=== PATIENT | male | born 1945 | race Caucasian/White ===

== ENCOUNTER 2018-02-21 12:53 | Observation (INO) ==
[2018-02-21] MEDS ORDERED: ASPIRIN PO ONE (14:19)
--- NOTE | 2018-02-21 14:30 | EKG Report ---
Test Performed on : 02/21/2018 1:41:56 PM Test Reason : CP/SOB Blood Pressure : / mmHG Vent. Rate : 092 BPM Atrial Rate : 277 BPM P-R Int : 000 ms QRS Dur : 142 ms QT Int : 388 ms P-R-T Axes : 266 099 032 degrees QTc Int : 479 ms Atrial flutter. with variable AV block. with premature ventricular or aberrantly conducted complexes. Right bundle branch block Abnormal ECG When compared with ECG of 28-NOV-2017 14:02, Atrial flutter. has replaced Atrial fibrillation. Unconfirmed Result
--- NOTE | 2018-02-21 14:39 | Diag Imaging Result Doc PS360 ---
CHEST-2 VIEWS - 02/21/2018 INDICATION: CP/SOB COMPARISON: 11/28/2017 FINDINGS: There are similar-appearing diffuse bilateral coarse interstitial infiltrates. These have a somewhat peripheral distribution. No pneumothorax or pleural effusion. Heart size is top normal. IMPRESSION: There is probably pulmonary fibrosis. Pulmonary edema may also be present. Correlate clinically. Electronically signed by Dusty Pedraza 02/21/2018 2:37 PM
--- NOTE | 2018-02-21 14:41 | ED EKG INTERP ---
This chart was entered by Ivana Pacheco Scribe, acting as scribe for Adelaida Brower MD. EKG Interpretation - EKG Time of EKG reading by physician:: 13:41 EKG Read and Signed by:: Adelaida Brower EKG Interpretation (*Must complete 3 of following elements*): Abnormal (rhythm - atrial fibrillation with variable AV block with premature ventricular or aberrantly conducted complexes) Rate: 92 Comments: RBBB Attestation - Physician/ PEREZ Attestation The physician spent face to face time with patient:: No Advanced Practice Provider documentation review:: Supervising physician onsite and consulted in the evaluation and care of this patient. The physician did not have a face to face encounter with the patient. This chart was documented by the indicated scribe, (Ivana Pacheco Scribe) and accurately reflects the services I performed and decisions made by me, Adelaida Brower MD, as attested by the provider's signature.
[2018-02-21 14:49] LABS: BASO# 0.04 X1000 (0.0-0.2); BASO% 0.4 % (0.0-0.8); EOS# 0.26 X1000 (0.0-0.7); EOS% 2.6 % (0.0-10.0); HEMATOCRIT 43.1 % (42.0-52.0); HEMOGLOBIN 13.7 g/dL (14.0-18.0); IMM GRAN# 0.04 X1000 (0.0-0.04); IMM GRAN% 0.4 % (0.0-0.5); LYMPH# 1.69 X1000 (1.2-3.4); LYMPH% 17.1 % (20.5-51.1); MCH 28.1 PG (27-31); MCHC 31.8 g/dL (33-37); MCV 88.3 FL (81-99); MONO# 0.89 X1000 (0.11-0.59); NEUT# 6.99 X1000 (1.4-6.5); NEUT% 70.5 % (42.2-75.2); PLT 305 X1000 (130-400); RBC 4.88 XMIL (4.7-6.1); RDW 17.2 % (11.5-14.5); WBC 9.91 X1000 (4.8-10.8)
[2018-02-21 15:01] LABS: INR 1.19
[2018-02-21 15:02] LABS: PTT 37.9 Seconds (22.3-41.8)
[2018-02-21 15:11] LABS: ALB/GLOB RATIO 1.8; ALBUMIN 4.1 g/dL (3.5-5.0); CALCIUM 9.9 mg/dL (8.8-10.2); CREATININE 1.4 mg/dL (0.7-1.2); POTASSIUM 5.3 mmol/L (3.5-5.1); TOTAL BILIRUBIN 0.61 mg/dL (0.20-1.00); TOTAL PROTEIN 6.4 g/dL (6.3-8.3)
--- NOTE | 2018-02-21 16:37 | PROVIDER DOCUMENTATION ---
HPI-Respiratory General - General Chief Complaint: Shortness of Breath Stated Complaint: SOB Time Seen by Provider: 02/21/18 15:50 Source: patient, family Allergies/Adverse Reactions: Patient Allergies Allergy/AdvReac Type Severity Reaction Status Date / Time No Known Allergies Allergy Verified 11/28/17 16:53 Home Medications: Home Medication List Medication Instructions Recorded Confirmed Last Taken Type Amlodipine Besylate 10 mg PO DAILY 11/28/17 11/28/17 1 Day Ago History ~11/27/17 10mg Atorvastatin Calcium 80 mg PO DAILY 11/28/17 11/28/17 1 Day Ago History ~11/27/17 80mg Clopidogrel Bisulfate [Clopidogrel] 75 mg PO DAILY 11/28/17 11/28/17 1 Day Ago History ~11/27/17 75mg Furosemide [Lasix] 40 mg PO DIRECTED 30 Days tab 11/28/17 Unknown Rx Gabapentin 300 mg PO DAILY 11/28/17 11/28/17 1 Day Ago History ~11/27/17 300mg Lisinopril 20 mg PO DAILY 11/28/17 11/28/17 1 Day Ago History ~11/27/17 20mg Metformin HCl 1,000 mg DAILY 11/28/17 11/28/17 1 Day Ago History ~11/27/17 1000mg Multivit with Iron,Minerals 1 tab PO DAILY 11/28/17 11/28/17 1 Day Ago History [Spectravite Senior] ~11/27/17 Venlafaxine HCl [Venlafaxine HCl 150 mg PO DAILY 11/28/17 11/28/17 1 Day Ago History ER] ~11/27/17 150mg - History of Present Illness-Resp Nature of Presenting Problem: HPI: Pt reprost to ER with 10 days of SOB, productive cough and weakness. He has a PMH of COPD, CHF, HTN, DM2, Hyperlipidemia, Stints x 1, but no SD. He states thta he been having progressively worse SOB over the past 10 days. He was admitted here in Nov 2017 for SOb and pulmonary Edema. They started Lasix at that time. He does not use oxygen at home, but upon arrival he was st at Review of Systems - Adult - REVIEW OF SYSTEMS - ADULT Constitutional: reports: no symptoms reported Eyes: reports: no symptoms reported Ears, Nose, Mouth & Throat: reports: no symptoms reported Cardiovascular: reports: no symptoms reported. denies: chest pain, edema Respiratory: reports: cough, dyspnea on exertion, excessive sputum production, shortness of breath Gastrointestinal: reports: no symptoms reported Genitourinary: reports: no symptoms reported Musculoskeletal: reports: no symptoms reported Integumentary: reports: no symptoms reported Neurological: reports: no symptoms reported Psychiatric: reports: no symptoms reported Endocrine: reports: no symptoms reported Hematologic/Lymphatic: reports: no symptoms reported Allergic/Immunologic: reports: no symptoms reported All Other Systems: Reviewed and Negative Past History - Adult - PAST MEDICAL HISTORY-ADULT Review of Records: reports: Old Records Reviewed, Nursing Assessment Review, Medications Reviewed, Social history reviewed & non-contributory. Major Childhood Illnesses: reports: denies history Cardiovascular: reports: A-Fib, CAD, CHF, HTN, hyperlipidemia Respiratory: reports: COPD Gastrointestinal: reports: denies history Obstetrical/Gynecological: reports: denies history Genitourinary: reports: denies history Musculoskeletal: reports: denies history Neurological: reports: denies history Psychiatric: reports: denies history Endocrine/Immune: reports: denies history Other Conditions: reports: denies history - PRIOR SURGERIES/PROCEDURES Surgical/Procedure History: reports: reviewed, not pertinent - IMMUNIZATION STATUS Childhood Immunizations: See Nurse Assessment Flu Vaccine: See Nurse Assessment - FAMILY HISTORY Family History: reviewed, not pertinent - SOCIAL HISTORY Smoking: denies Substance Use: none/never Alcohol Use Frequency: never Living Situation: family Physical Exam-General - PHYSICAL EXAM-ADULT Initial Vital Signs Reviewed: Yes - CONSTITUTIONAL General Appearance: appears well, alert, no apparent distress - EYES Eyes: pink conjunctivae - NECK Neck: full range of motion - RESPIRATORY Respiratory: chest non-tender, other (diffuse bilaterallly). negative: lungs clear, normal breath sounds, rhonchi - CARDIOVASCULAR Cardiovascular: normal peripheral pulses, no edema - GASTROINTESTINAL (ABDOMEN) Abdominal Exam: normal bowel sounds, non tender, soft. negative: distended, guarding, rigid, rebound, tenderness - LYMPHATIC Lymphatic: no adenopathy - MUSCULOSKELETAL Back Exam: normal inspection Extremity: normal range of motion, non-tender, normal gait Peripheral Pulses: radial (R): 2+, radial (L): 2+, dorsalis-pedis (R): 2+, dorsalis-pedis (L): 2+ - SKIN Integumentary: normal color, normal turgor, warm/dry - NEUROLOGIC Neurologic: grossly normal - PSYCHIATRIC Psych/Mental Status: normal mood/affect, normal thought content, normal thought process, oriented x 3 Progress - PLAN OF CARE/RESULTS Progress/Plan/Lab Results: Vital Signs - 8 hr 02/21/18 13:29 02/21/18 15:42 02/21/18 15:44 Pulse Rate 108 H 90 90 Respiratory Rate 18 20 12 Blood Pressure 130/91 121/76 O2 Sat by Pulse Oximetry 84 L 94 L 92 L 02/21/18 15:50 02/21/18 16:00 02/21/18 16:10 Pulse Rate 90 90 88 Respiratory Rate 21 16 23 Blood Pressure O2 Sat by Pulse Oximetry 89 L 93 L 93 L Laboratory Results - last 24 hr 02/21/18 02/21/18 02/21/18 13:43 13:43 13:43 WBC 9.91 RBC 4.88 Hgb 13.7 L Hct 43.1 MCV 88.3 MCH 28.1 MCHC 31.8 L RDW Std Deviation 17.2 H Plt Count 305 MPV 11.0 H Immature Gran % (Auto) 0.4 Neut % (Auto) 70.5 Lymph % (Auto) 17.1 L [place] % (Auto) 9.0 Eos % (Auto) 2.6 Baso % (Auto) 0.4 Immature Gran # (Auto) 0.04 Neut # (Auto) 6.99 H Lymph # (Auto) 1.69 [place] # (Auto) 0.89 H Eos # (Auto) 0.26 Baso # (Auto) 0.04 PT INR PTT (Actin FS) Sodium 139 Potassium 5.3 H Chloride 98 Carbon Dioxide 27 Anion Gap 14 BUN 23 H Creatinine 1.4 H Estimated GFR/1.73 m2 50 BUN/Creatinine Ratio 16 Glucose 185 H Calculated Osmolality 286 Calcium 9.9 Total Bilirubin 0.61 AST 15 ALT 19 Alkaline Phosphatase 115 Creatine Kinase 26 Troponin T Dal-N-Qmrqdanrcoi Pept 498 H Total Protein 6.4 Albumin 4.1 Globulin 2.3 Albumin/Globulin Ratio 1.8 02/21/18 02/21/18 13:43 13:43 WBC RBC Hgb Hct MCV MCH MCHC RDW Std Deviation Plt Count MPV Immature Gran % (Auto) Neut % (Auto) Lymph % (Auto) [place] % (Auto) Eos % (Auto) Baso % (Auto) Immature Gran # (Auto) Neut # (Auto) Lymph # (Auto) [place] # (Auto) Eos # (Auto) Baso # (Auto) PT 16.0 INR 1.19 PTT (Actin FS) 37.9 Sodium Potassium Chloride Carbon Dioxide Anion Gap BUN Creatinine Estimated GFR/1.73 m2 BUN/Creatinine Ratio Glucose Calculated Osmolality Calcium Total Bilirubin AST ALT Alkaline Phosphatase Creatine Kinase Troponin T < 0.010 Utp-C-Fmcaptychci Pept Total Protein Albumin Globulin Albumin/Globulin Ratio Orders Category Date Time Status Cardiac Monitoring DIRECTED Care 02/21/18 14:19 Active Oxygen Therapy- ED Nursing DIRECTED Care 02/21/18 14:19 Active Saline Loc NOW Care 02/21/18 14:19 Active CHEST-2 VIEWS [RAD] Stat Exams 02/21/18 14:19 Completed CBC WITH ELECTRONIC DIFF [HEME] Stat Lab 02/21/18 13:43 Completed CK PROFILE [SP CHEM] Stat Lab 02/21/18 13:43 Completed COMPREHENSIVE METABOLIC PANEL [CHEM] Stat Lab 02/21/18 13:43 Completed PRO B-NATRIURETIC PEPTIDE Stat Lab 02/21/18 13:43 Completed PROTIME WITH INR [COAG] Stat Lab 02/21/18 13:43 Completed PTT [COAG] Stat Lab 02/21/18 13:43 Completed TROPONIN T Stat Lab 02/21/18 13:43 Completed Aspirin Med 02/21/18 14:19 Discontinued 325 mg PO NOW ONE CefTRIAXONE [Rocephin] 1 gm Med 02/21/18 16:42 Active 0.9% Sodium Chloride Inj [Ns] 50 ml IV NOW Methylprednisolone Sod Succ [Solu-Medrol] Med 02/21/18 16:42 Discontinued 60 mg IV NOW ONE CP/SOB/Palp >45 yrs of Age Stat Oth 02/21/18 14:19 Ordered EKG [EKG] Stat Ther 02/21/18 14:19 Draft Result Diagrams: 02/21/18 13:43 02/21/18 13:43 - XRAY 1 XRAY Study: Chest Impression: Abnormal ([facility] [address], [address], [place] [id number] Department of Imaging Patient: WILDER LEYVA Date: 02/21/18MR#: [id number] : 1945DM Status: PRE ERAcct#: [id number] Age /Sex: 72/MRoom/Bed: Loc: ED Ordering Physician: Adelaida Brower MD Family Physician: None,PCP Reason for Procedure: CP/SOB Signed CHEST- 2 VIEWS - 02/21/2018 INDICATION: CP/SOB COMPARISON: 11/28/2017 FINDINGS: There are similar-appearing diffuse bilateral coarse interstitial infiltrates. These have a somewhat peripheral distribution. No pneumothorax or pleural effusion. Heart size is top normal. IMPRESSION: There is probably pulmonary fibrosis. Pulmonary edema may also be present. Correlate clinically. Electronically signed by Dusty Pedraza 02/21/2018 2:37 PM 02/21/18 1437 Interpreting Physician: Dusty Pedraza MD Dictated Date/Time: 02/21/18 1435 cc: Adelaida Brower MD; None,PCP) - CONSULTS/PCP/HOSPITALIST Notification #1 *Consult/PCP/Hospitalist*: Rajeev ga for Dr porter Time Discussed: 16:49 Consult Disposition: Admit Departure - Departure Date of Disposition Decision: 02/21/18 Time of Disposition Decision: 16:48 DIAGNOSIS: Acute respiratory failure, COPD exacerbation Disposition: ADMITTED INPATIENT 09 Certified Medical Emergency: Emergent Condition: Fair Referrals and Follow-Ups: Lucero Benito [Primary Care Provider] - - Critical Care Note This patient required my direct & personal management of CC.: No Attestation - Physician/ PEREZ Attestation Patient care was provided by Advanced Practice Provider:: No The physician spent face to face time with patient:: Yes Advanced Practice Provider documentation review:: Supervising physician onsite and consulted in the evaluation and care of this patient. The physician did have a face to face encounter with the patient.
[2018-02-21] MEDS ORDERED: ROCEPHIN 1 GM in NS 50 ML IV ONE (16:42)
[2018-02-21] MEDS ORDERED: SOLU-MEDROL IV ONE (16:42)
[2018-02-21] MEDS ORDERED: DUONEB (A & A) INH ONE (16:52)
[2018-02-21] MEDS ORDERED: LACTULOSE PO ONE (17:45)
[2018-02-21] MEDS ORDERED: LASIX IV ONE (17:47)
[2018-02-21 18:22] LABS: ALLEN TEST YES; BE 2.7 mmoll (-3.0-3.0); BLOOD TYPE ARTERIAL; HCO3-(ACT) 26.8 mmoll (20.0-26.0); O2(CT) 17.4 mL/dL (15.0-23.0); PCO2(98.6) 36 mmHg (35-45); PO2(98.6) 53 mmHg (60-100); SAMPLE BLOOD; SAO2 90.2 % (95.0-100.0); THB 14.1 g/dL (11.5-17.4); pH(98.6) 7.47 (7.35-7.45)
[2018-02-21 18:30] LABS: O2HB 87.8 % (95.0-99.0)
[2018-02-21 18:31] LABS: MODALITY CANNULA
[2018-02-21] MEDS ORDERED: ZOFRAN IV PRN (18:41)
[2018-02-21] MEDS ORDERED: DUONEB (A & A) INH PRN (18:41)
[2018-02-21] MEDS ORDERED: TYLENOL PO PRN (18:41)
--- NOTE | 2018-02-21 19:29 | HISTORY AND PHYSICAL ---
PRIMARY CARE PROVIDER: [facility] in [place]. GENERAL: Shortness of breath. HPI: Mr. Forde is a 72-year-old male who carries a past medical history of coronary artery disease status post a stent in the summer in [facility] by an unknown doctor, COPD. He is not on home O2 or any breathing treatments, hypertension, diabetes mellitus type 2, hyperlipidemia, irregular heart rate, recently diagnosed with congestive heart failure per patient's report at the [facility]. He was placed on a water pill. He reported to the ED about a week and a half history of shortness of breath with exertion and goes away with rest. He denied any wheezing, any chest pain, fever, chills, nausea, vomiting, diarrhea, heart palpitations, diaphoresis. He had a productive cough which he usually has a cough of brownish green sputum, in the ER he was given DuoNeb, IV steroids and placed on Rocephin and admitted for COPD exacerbation, acute respiratory failure. We will obtain blood cultures, ABG, place him on telemetry. He does not have a white count. Elevated BUN and creatinine at 23 and 1.4, blood glucose of 185, troponin less than 0.010 and a proBNP of 498 and potassium of 5.3 so we will give a small dose of Lasix and lactulose for chest x-ray revealed probable pulmonary fibrosis, pulmonary edema, EKG showed atrial flutter with an AV block with premature ventricular complexes read by Dr. Brower as a-fib. He is rate controlled in the 90s, again denies palpitations or chest pain. REVIEW OF SYSTEMS: 14 point review of systems completely negative except for those mentioned in HPI. PAST MEDICAL HISTORY: 1. Irregular heart rate probable atrial fibrillation patient was unsure. 2. Coronary artery disease patient denied MD but he is status post a stent back in the summer 2017 [facility]. 3. Congestive heart failure . 4. Hypertension. 5. Hyperlipidemia. 6. COPD. 7. Diabetes mellitus type 2 on oral metformin. PAST SURGICAL HISTORY: 1. Bilateral knee replacement . 2. Appendectomy. 3. Heart catheterization in 2018 at [facility]. SOCIAL HISTORY: The patient quit smoking 40 years ago, he was a 3 pack per day smoker for many years, negative alcohol. He lives in [place], he is , retired from [employer]. FAMILY HISTORY: Unsure of coronary artery disease. Father of some type of cancer unknown what type, patient states he was very young when his father . His father was born in 1897. He has a brother he believes is diabetic but still unsure, he is 92 years old. ALLERGIES: No known drug allergies. HOME MEDICATIONS: Have not been reconciled. The patient is not sure what medicines he takes for sure he states his just leaves them out for him and he takes them. PHYSICAL EXAM: VITAL SIGNS: No temperature taken, heart rate 88, respirations 23, most recent blood pressure was 121/76, oxygen was 93% on 2 L nasal cannula. GENERAL: Mr. Forde is a 72-year-old male who is sitting up on the edge of the stretcher in no acute distress uninterested in the interview process. HEENT: Atraumatic, normocephalic, [place]. NECK: Is supple, trachea midline. CV: Irregular rate and rhythm, no murmurs, gallops or rubs noted no JVD no LE edema B pedal pulses palpable. PULMONARY: Bilateral breath sounds clear to auscultation bilaterally, decreased in the bases. GI: Soft, nontender, nondistended, positive bowel sounds 4 quads. EXTREMITIES: no clubbing no cyanosis. NEURO: No focal deficits noted, patient is alert and oriented x4. DIAGNOSTIC DATA: Chest x-ray probable pulmonary fibrosis, pulmonary edema. EKG shows atrial flutter. LABORATORY DATA: White count 9, hemoglobin and hematocrit 13 and 43, platelet count is 305,000, sodium 139, potassium 5.3, BUN 23, creatinine 1.4, blood glucose is 185, troponin less than 0.010, ProBNP is 498. ASSESSMENT PLAN: 1. Probable Mild chronic obstructive pulmonary disease exacerbation. Will switch the patient over to Levaquin to help with inflammation in the lungs, continue bronchodilators scheduled and p.r.n. Continue with low-dose steroids, aggressive pulmonary toilet, recheck a chest x-ray in the a.m. 2.Probable Mild pulmonary edema with a mildly elevated proBNP, patient does state he has a history of congestive heart failure, this is diagnosed at the [facility]. We will give him a light dose of intravenous Lasix, recheck his proBNP and chest x-ray in the a.m., consult Cardiology, check an echocardiogram. 3. Hypoxemic respiratory failure upon arrival patient's O2 saturations were in the 80s, he is in the low 90s on supplemental O2. Will check an ABG, recheck an ABG in the a.m. 4. Mild hyperkalemia. Will give lactulose as well as give a light dose of Lasix. 5. Acute kidney injury on chronic kidney disease. Will recheck his BUN and creatinine in the a.m. We are going to give him light dose of Lasix very cautiously, hold any nephrotoxic drugs . 6. Hypertension, continue home medications when reconciled. 7. Hyperlipidemia, will check a lipid profile. 8. Diabetes mellitus type 2. Will continue on diabetic diet, check hemoglobin A1c, place him on pattern sugars with sliding scale. 9. Atrial fibrillation versus atrial flutter, patient currently rate controlled , will place him on medical tele, consult Cardiology. 10. Coronary artery disease status post stent in the summer of 2017 at [facility]. Will continue home medications when reconciled. 11. Further recommendations to follow laboratory data and physician evaluation. Dictated by DIVINA Vicente for Iain Andre MD cc: Iain Andre MD [facility]
[2018-02-21] MEDS: DUONEB (A & A) INH SCH ×2 (19:30→23:00)
[2018-02-21] MEDS: HEPARIN SUBQ SCH (20:37)
[2018-02-21] MEDS: LEVAQUIN 500 MG/D5W 500 MG/100 ML IVPB IV SCH (20:37)
[2018-02-21] MEDS: SOLU-MEDROL IV SCH (20:37)
[2018-02-22] MEDS: DUONEB (A & A) INH SCH ×6 (03:50→23:00)
[2018-02-22 05:31] LABS: ALLEN TEST YES; BE 0.3 mmoll (-3.0-3.0); BLOOD TYPE ARTERIAL; METHB 0.5 % (0.0-1.5); O2(CT) 17.2 mL/dL (15.0-23.0); O2HB 90.2 % (95.0-99.0); PCO2(98.6) 33 mmHg (35-45); PO2(98.6) 56 mmHg (60-100); SAMPLE BLOOD; SAO2 92.4 % (95.0-100.0); THB 13.6 g/dL (11.5-17.4); pH(98.6) 7.46 (7.35-7.45)
[2018-02-22 05:35] LABS: MODALITY CANNULA
[2018-02-22 06:22] LABS: BASO# 0.01 X1000 (0.0-0.2); BASO% 0.1 % (0.0-0.8); EOS# 0.01 X1000 (0.0-0.7); EOS% 0.1 % (0.0-10.0); HEMATOCRIT 40.3 % (42.0-52.0); HEMOGLOBIN 13.1 g/dL (14.0-18.0); IMM GRAN# 0.04 X1000 (0.0-0.04); IMM GRAN% 0.6 % (0.0-0.5); LYMPH# 0.74 X1000 (1.2-3.4); LYMPH% 10.7 % (20.5-51.1); MCH 28.3 PG (27-31); MCHC 32.5 g/dL (33-37); MONO# 0.25 X1000 (0.11-0.59); MONO% 3.6 % (1.7-9.3); NEUT# 5.88 X1000 (1.4-6.5); NEUT% 84.9 % (42.2-75.2); PLT 284 X1000 (130-400); RBC 4.63 XMIL (4.7-6.1); RDW 16.8 % (11.5-14.5); WBC 6.93 X1000 (4.8-10.8)
[2018-02-22 06:33] LABS: AGAP 14; ALB/GLOB RATIO 1.2; ALBUMIN 3.7 g/dL (3.5-5.0); ALKALINE PHOSPHATASE 98 U/L (32-122); BUN 24 mg/dL (8-22); CALCIUM 9.5 mg/dL (8.8-10.2); CHLORIDE 100 mmol/L (98-107); CHOLESTEROL 142 mg/dL (0-200); COSMO 287; CREATININE 1.2 mg/dL (0.7-1.2); ESTIMATED GFR 59; GLUCOSE 234 mg/dL (70-104); GOT 12 U/L (10-34); GPT 14 U/L (10-44); HDL 27 mg/dL (35-55); LDL 84 mg/dL; POTASSIUM 4.8 mmol/L (3.5-5.1); SODIUM 138 mmol/L (136-145); TCO2 24 mmol/L (25-35); TOTAL BILIRUBIN 0.52 mg/dL (0.20-1.00); TOTAL PROTEIN 6.7 g/dL (6.3-8.3); TRIGLYCERIDES 155 mg/dL (39-160); VLDL 31 mg/dL
[2018-02-22 06:40] LABS: HEMOGLOBIN A1C 6.3 % (4.8-6.0)
--- NOTE | 2018-02-22 07:16 | Diag Imaging Result Doc PS360 ---
EXAM: CHEST-PORTABLE 02/22/2018 HISTORY: short of breath TECHNIQUE: AP portable at 0605 COMMENT: There is increased interstitial markings generally particularly over the right lung. This may be slightly improved since the previous study of 02/21/2018. IMPRESSION: Slightly improved pulmonary edema. Electronically signed by Cezar Stanley 02/22/2018 7:14 AM
[2018-02-22] MEDS: HEPARIN SUBQ SCH (10:17)
[2018-02-22] MEDS: SOLU-MEDROL IV SCH ×2 (10:17→22:08)
[2018-02-22] MEDS ORDERED: PLAVIX PO SCH (11:56)
[2018-02-22] MEDS ORDERED: NORVASC PO SCH (11:56)
[2018-02-22] MEDS: PRINIVIL PO SCH (13:36)
[2018-02-22] MEDS: EFFEXOR XR PO SCH (13:36)
[2018-02-22] MEDS: LASIX IV SCH (13:37)
[2018-02-22] MEDS: NEURONTIN PO SCH (13:37)
[2018-02-22] MEDS: LEVAQUIN 500 MG/D5W 500 MG/100 ML IVPB IV SCH (18:12)
--- NOTE | 2018-02-22 19:27 | PROGRESS NOTE ---
DATE: 02/22/2018 SUBJECTIVE: The patient is resting comfortably in bed. He states that his shortness of breath has improved. No acute events noted overnight. OBJECTIVE: Vital Signs: Temperature 98.7 degrees, blood pressure 124/68, heart rate 95, respirations 20, oxygen saturation 99% on 2 L nasal cannula. General: This is a morbidly obese male, sitting up in bed, in no acute distress. Heart: S1, S2. Normal. Lungs : Clear to auscultation bilaterally. No wheezing. No rales. Abdomen: Positive bowel sounds. Soft, nontender, nondistended. Extremities: No edema. No cyanosis. Neurologic: The patient is alert and oriented x3. LABS: Reviewed. ASSESSMENT AND PLAN: 1. Acute pulmonary edema. Improved. Continue with diuretic therapy. Cardiology has been consulted. 2. Chronic obstructive pulmonary disease exacerbation. Continue with IV steroids, bronchodilator therapy, and Levaquin. The patient states that he is not on supplemental oxygen at home. 3. Tachyarrhythmia. Will await further recommendations from the quarter backer. 4. Hypertension. Continue on the current antihypertensive regimen. cc: Basia Fragoso MD MTDD
--- NOTE | 2018-02-22 19:37 | CARDIOLOGY CONSULTATION ---
DATE: 02/22/2018 INDICATION FOR ADMISSION: Shortness of breath. HISTORY OF PRESENT ILLNESS: Mr. Forde is a 72-year-old white male with a history of coronary artery disease with previous PCI in 2017 per review of records. He presented for evaluation of shortness of breath that has been ongoing for the last several weeks. He reports this can occur with exertion like walking across a room. He denies any orthopnea. He has not had any chest pain. It sounds like he has been diagnosed with atrial flutter possibly in the last couple of months or so and [facility] He has not had any palpitations. He has not had any other adjustments in his medications. PAST MEDICAL HISTORY: 1. Significant for CAD diagnosed in September 2016 at which time he had a normal left main, mild luminal irregularities in the LAD and circumflex. The RCA had a mid portion 80% stenosis that was treated with a 3.0 x 28 mm Xience drug-eluting stent. He has not followed back up with Cardiology. After this the LV function was 55% on that study. 2. Hypertension. 3. Hyperlipidemia. 4. COPD with a smoking history of 40 years. 5. Diabetes. 6. Possible atrial fibrillation, but the history of that is somewhat limited. SOCIAL HISTORY: He quit smoking 15 years ago after a 40 year smoking history. He lives in [place]. He is . He is retired from [employer]. FAMILY HISTORY: Significant for hypertension. REVIEW OF SYSTEMS: A 10-system review of systems is negative except for those as mentioned in HPI. PHYSICAL EXAMINATION: Vital Signs: He is afebrile. His heart rate most recently was 121, but previous to that seemed to be documented in the 80s to 90s predominantly. His blood pressure is 124/68. General: He is in no acute distress. HEENT: Oropharynx is moist. Poor dentition. Eye examination is pink conjunctivae. White sclerae. Neck: Examination shows no obvious thyromegaly or thyroid tenderness. Cardiovascular: He sounds to be in a regular rate and rhythm. He has no murmurs, no S3. His telemetry currently shows atrial flutter at a rate of 120. He has no lower extremity edema. Chest: Sounds clear bilaterally. He has no increased work of breathing. Abdomen: Soft, nontender, nondistended. He has no obvious organomegaly. Skin: Warm and dry throughout without any rashes. Neurologic: Moving all extremities well. He has no lateralizing deficits. Psychiatric: Alert and oriented, pleasant. Normal mood and affect. PERTINENT DATA: His EKG yesterday shows variable atrial flutter with a rate of 92 beats per minute. Right bundle branch block is present. His white count was 6.9, hematocrit 40. Platelet count is 284,000. His ABG was reviewed. His sodium is 138, potassium 4.8, BUN 24, creatinine is 1.2. Mag level was 1.8 yesterday. His cardiac enzymes have been negative. His ProBNP was 528 this morning. His LDL is 84. He had a chest x-ray demonstrating slight improvement in pulmonary edema. ASSESSMENT: Mr. Forde is a 72-year-old gentleman who presented with shortness of breath. PLAN: This is possibly due to his atrial flutter. Presently, we will try to perform a cardioversion in the morning. Transesophageal echo will be performed along with it. We will stop his Plavix, place him on aspirin and initiate Eliquis at a dose of 5 mg b.i.d. This stent was performed in September 2016, so we should be able to discontinue the Plavix. His TSH this morning was normal. cc: Paul Ferrara MD
[2018-02-22] MEDS: LOPRESSOR PO SCH (22:07)
[2018-02-22] MEDS: ELIQUIS PO SCH (22:07)
[2018-02-22] MEDS: LIPITOR PO SCH (22:07)
[2018-02-23] MEDS: LASIX IV SCH ×2 (01:00→11:57)
[2018-02-23] MEDS: DUONEB (A & A) INH SCH ×6 (02:35→23:05)
--- NOTE | 2018-02-23 04:16 | PULMONOLOGY CONSULTATION ---
DATE: 02/22/2018 REQUESTING PHYSICIAN: Dr. Fragoso. REASON FOR CONSULTATION: COPD, with shortness of breath and hypoxemia. HISTORY OF PRESENT ILLNESS: Mr. Forde is a 72-year-old white male with a greater than 60-pack- year history for tobacco (nonsmoker for 30 years), who presented to the hospital in November 2017 with fluid overload, pulmonary edema, and increased shortness of breath. He was initiated on a diuretic, and reports some improvement in his breathing at that time. The patient reports he has been diagnosed with COPD 6 to 7 months ago at the [place], although he does not recall a pulmonary function study by name or by description. He is not on home oxygen. The patient presented to the emergency room yesterday with increasing shortness of breath for approximately 1 week. He reports his oxygen saturation in the [facility] is routinely 90, and he was 84 on presentation. Chest x- ray revealed increased interstitial infiltrates, consistent with fibrosis or edema. Chest x-ray this morning revealed a slight decrease in markings, suggesting decreased edema. The patient has been evaluated by Cardiology. He is in atrial flutter, and it is a working diagnosis that this may be contributing to his shortness of breath. The patient denies fevers, chills, or significant sputum production. PAST MEDICAL HISTORY: 1. Coronary artery disease, status post stent placement in the RCA with a drug-eluting stent, 09/2016. He had excellent LV function. 2. Hypertension. 3. Intermittent atrial fibrillation. 4. Diabetes mellitus. 5. COPD. 6. Dyslipidemia. SOCIAL HISTORY: The patient is retired. Prior tobacco use. He denies significant alcohol use. FAMILY HISTORY: Possible for diabetes. The patient was young when his father . REVIEW OF SYSTEMS: As noted in the HPI. PHYSICAL EXAMINATION: General: Reveals an obese white male, in no distress. Vital Signs: BP 133/62, heart rate 124, respiratory rate 20, oxygen saturation 97% on 2 L per nasal cannula. HEENT: Pupils are equal and reactive. Oropharynx is clear. Neck: Supple. Chest: Reveals prolonged expiratory phase. Cardiac: S1-S2. Increased rate. Relatively regular rhythm. Abdomen: Obese and soft. Extremities: Without edema. LABORATORIES: Arterial blood gas this morning reveals a pH 7.46, pCO2 of 33, PO2 of 56 on 2 L per nasal cannula. IMPRESSION: A 72-year-old with chronic obstructive pulmonary disease, mild pulmonary edema, atrial flutter with a tachyarrhythmia, mild pulmonary edema, and acute hypoxemic respiratory failure. I agree with Cardiology's assessment that the atrial flutter may be contributing to mild pulmonary edema, which is pushing him from a marginal oxygenation status to acute hypoxemia. He currently has no significant wheezing on examination, and no significant evidence of an active chronic obstructive pulmonary disease exacerbation. RECOMMENDATIONS: 1. Agree with attempted cardioversion as planned. 2. Continue oxygen for hypoxemic respiratory failure. 3. Outpatient sleep study. [facility] 4. Recommend outpatient PFTs. [facility], and this will likely need to be done through a [place] facility. cc: Sumit An MD
[2018-02-23 06:41] LABS: BASO# 0.02 X1000 (0.0-0.2); BASO% 0.2 % (0.0-0.8); HEMATOCRIT 42.6 % (42.0-52.0); HEMOGLOBIN 13.7 g/dL (14.0-18.0); IMM GRAN# 0.05 X1000 (0.0-0.04); IMM GRAN% 0.4 % (0.0-0.5); LYMPH# 0.77 X1000 (1.2-3.4); LYMPH% 6.5 % (20.5-51.1); MCH 28.1 PG (27-31); MCHC 32.2 g/dL (33-37); MCV 87.5 FL (81-99); MONO# 0.56 X1000 (0.11-0.59); MONO% 4.7 % (1.7-9.3); NEUT# 10.52 X1000 (1.4-6.5); NEUT% 88.2 % (42.2-75.2); PLT 342 X1000 (130-400); RBC 4.87 XMIL (4.7-6.1); RDW 17.2 % (11.5-14.5); WBC 11.92 X1000 (4.8-10.8)
[2018-02-23 06:49] LABS: CALCIUM 9.8 mg/dL (8.8-10.2); CREATININE 1.4 mg/dL (0.7-1.2); POTASSIUM 4.8 mmol/L (3.5-5.1)
[2018-02-23 07:40] LABS: BANDS 2 % (0-1); LYMPHS 4 % (21-51); MONO 2 % (1-9); SEGS 92 % (42-75)
--- NOTE | 2018-02-23 08:46 | ECHO REPORT ---
ORDER DATE: 02/22/2018 MEASUREMENTS: Left ventricular end-diastolic diameter 4.7, end-systolic diameter 3.3, septal thickness 1.2, posterior wall thickness 0.8, aortic root 4.2, left atrium 3.9. SUMMARY: 1. Technically difficult study due to limited acoustic window quality. 2. Aortic valve is trileaflet and opens normally on 2-dimensional images. Peak gradient across the aortic valve is less than 10 mmHg. Mitral and tricuspid valves are without evidence of structural abnormality while the pulmonic valve was not well demonstrated. There is very mild mitral regurgitation and trace tricuspid regurgitation. The aortic root is mildly enlarged. 3. Normal left ventricular dimensions suggested on 2-D images. Estimated left ventricular ejection fraction appears to be at least 60%. No obvious regional wall motion abnormality can be appreciated. Left atrium is upper normal in size. Right atrium and right ventricle are grossly normal in size. 4. Tiny posterior pericardial effusion. 5. Appearance of inferior vena cava suggests some elevation of central venous pressure. cc: Geovani Hernandez MD
[2018-02-23] MEDS: SOLU-MEDROL IV SCH (09:18)
[2018-02-23] MEDS: PRINIVIL PO SCH (09:45)
[2018-02-23] MEDS: NORVASC PO SCH (09:45)
[2018-02-23] MEDS: LOPRESSOR PO SCH ×2 (09:45→21:20)
[2018-02-23] MEDS: NEURONTIN PO SCH (09:45)
[2018-02-23] MEDS: EFFEXOR XR PO SCH (09:45)
[2018-02-23] MEDS: ASPIRIN PO SCH (09:46)
[2018-02-23] MEDS: ELIQUIS PO SCH ×2 (09:46→21:20)
[2018-02-23] MEDS ORDERED: SODIUM CHLORIDE 0.9% 10 ML ONE (10:17)
[2018-02-23] MEDS ORDERED: XYLOCAINE 2% VISCOUS ONE (10:17)
[2018-02-23] MEDS ORDERED: NS 1,000 ML ONE (10:21)
[2018-02-23] MEDS ORDERED: CLAVE TWINSITE 32 IN 11959 ONE (10:21)
[2018-02-23] MEDS ORDERED: ANESTHESIA PB SET 88 IN 5742 ONE (10:21)
[2018-02-23] MEDS ORDERED: DIPRIVAN 1% ONE (10:27)
--- NOTE | 2018-02-23 11:04 | CARDIAC CATH REPORT ---
PROCEDURE NAME: - SUMMARY: After transesophageal echocardiography was performed, revealing no evidence of intracardiac thrombus, continued conscious sedation per Anesthesiology was maintained with propofol. The patient subsequently underwent synchronous direct-current cardioversion with 200 joules biphasic, converting atrial fibrillation to sinus rhythm. There were no apparent complications. CONCLUSION: Successful cardioversion of atrial fibrillation, restoring sinus rhythm. cc: Geovani Hernandez MD
--- NOTE | 2018-02-23 12:59 | EKG Report ---
Test Performed on : 02/23/2018 12:20:34 PM Test Reason : S/P cardioversion and silverio Blood Pressure : / mmHG Vent. Rate : 087 BPM Atrial Rate : 087 BPM P-R Int : 182 ms QRS Dur : 138 ms QT Int : 410 ms P-R-T Axes : 076 093 046 degrees QTc Int : 493 ms Sinus rhythm. with premature atrial complexes. Right bundle branch block Abnormal ECG When compared with ECG of 21-FEB-2018 13:41, (Unconfirmed) Sinus rhythm. has replaced Atrial fibrillation. Confirmed by Marleny GONZALES, Darrius Giraldo ([id number]) on 02/24/2018 7:18:26 PM
--- NOTE | 2018-02-23 13:45 | CARDIOLOGY PROGRESS NOTE ---
DATE: 02/23/2018 SUBJECTIVE: In the interim Mr. Forde has had his DK, followed by his cardioversion. He successfully has been converted to sinus. OBJECTIVE: Vital signs: The patient is afebrile. Heart rate 85, blood pressure 104/53. Telemetry currently shows sinus rhythm. Cardiovascular: He is in a regular rate and rhythm. He has no murmurs. He has no S3. No lower extremity edema. Chest: Clear bilaterally. No increased work of breathing. Abdomen: Soft, nontender. PERTINENT DATA: White count 11.9, hematocrit 42, platelet count 342,000. Sodium 138, potassium 4.8, BUN 30, creatinine is 1.4. ASSESSMENT: Mr. Forde is a 72-year-old gentleman with chronic obstructive pulmonary disease, who presented short of breath and in atrial fibrillation/flutter. PLAN: He cardioverted relatively easily. We will continue him on the Apixaban, as well as metoprolol and amlodipine. He was re-initiated on low-dose aspirin given his history of PCI. I will have him follow up with me in the clinic as an outpatient. From my standpoint, he can be discharged once safe from a primary care standpoint. cc: Paul Ferrara MD
[2018-02-23] MEDS: LEVAQUIN 500 MG/D5W 500 MG/100 ML IVPB IV SCH (16:40)
[2018-02-23] MEDS: HUMULIN R SUBQ SCH ×2 (16:40→21:21)
--- NOTE | 2018-02-23 20:29 | PROGRESS NOTE ---
DATE: 02/23/2018 SUBJECTIVE: The patient underwent a DK with cardioversion this morning. He is now in normal sinus rhythm. He has no complaints. OBJECTIVE: Vital Signs: Temperature 97 degrees, blood pressure 124/59, heart rate 102, respirations 20, O2 saturation 96% on 3 L nasal cannula. General: This is a chronically ill- appearing male, sitting up in bed, in no acute distress. Heart: S1, S2 normal. Regular rate and rhythm. Lungs: Equal air entry bilaterally. No wheezing. No rales. Abdomen: Positive bowel sounds. Soft, nontender, nondistended. Extremities: No edema. No cyanosis. Neurologic: The patient is alert and oriented x3. LABS: White blood cell count 11, hemoglobin 13, hematocrit 42, platelets 342,000. Sodium 138, potassium 4.8, chloride 100, CO2 23, BUN 30, creatinine 1.4, glucose 291. ASSESSMENT AND PLAN: 1. Atrial flutter, status post transesophageal echocardiogram with cardioversion. The patient is now in normal sinus rhythm. The patient has been started on Eliquis and Lopressor. 2. Acute pulmonary edema. Improved. The patient is on diuretic therapy. He does qualify for home oxygen. [employer] is working on arranging this. 3. Diabetes mellitus type 2. The patient's blood sugars have been running high, but that is likely secondary to steroid therapy. We will discontinue the steroids. We will cover the patient with sliding scale insulin at this time. 4. Hypertension. Controlled. 5. Diabetic neuropathy. Continue on gabapentin. 6. Disposition. Will plan to discharge the patient home tomorrow once the home oxygen has been arranged by [employer]. cc: Basia Fragoso MD
[2018-02-23] MEDS: LIPITOR PO SCH (21:20)
[2018-02-24] MEDS: LASIX IV SCH ×2 (00:55→11:35)
[2018-02-24] MEDS: DUONEB (A & A) INH SCH ×4 (05:14→16:00)
[2018-02-24 05:59] LABS: BASO# 0.02 X1000 (0.0-0.2); BASO% 0.2 % (0.0-0.8); EOS# 0.13 X1000 (0.0-0.7); EOS% 1.2 % (0.0-10.0); HEMATOCRIT 41.1 % (42.0-52.0); HEMOGLOBIN 13.1 g/dL (14.0-18.0); IMM GRAN# 0.03 X1000 (0.0-0.04); IMM GRAN% 0.3 % (0.0-0.5); LYMPH# 1.74 X1000 (1.2-3.4); LYMPH% 15.6 % (20.5-51.1); MCH 28.1 PG (27-31); MCHC 31.9 g/dL (33-37); MCV 88.2 FL (81-99); MONO# 1.11 X1000 (0.11-0.59); MPV 10.4 FL (7.4-10.4); NEUT# 8.09 X1000 (1.4-6.5); NEUT% 72.7 % (42.2-75.2); PLT 344 X1000 (130-400); RBC 4.66 XMIL (4.7-6.1); RDW 17.3 % (11.5-14.5); WBC 11.12 X1000 (4.8-10.8)
[2018-02-24 06:40] LABS: CALCIUM 9.3 mg/dL (8.8-10.2); CREATININE 1.4 mg/dL (0.7-1.2); POTASSIUM 4.1 mmol/L (3.5-5.1)
[2018-02-24] MEDS: HUMULIN R SUBQ SCH ×2 (06:51→12:00)
[2018-02-24] MEDS: PRINIVIL PO SCH (09:15)
[2018-02-24] MEDS: NORVASC PO SCH (09:15)
[2018-02-24] MEDS: ELIQUIS PO SCH (09:15)
[2018-02-24] MEDS: LOPRESSOR PO SCH (09:15)
[2018-02-24] MEDS: NEURONTIN PO SCH (09:15)
[2018-02-24] MEDS: EFFEXOR XR PO SCH (09:15)
[2018-02-24] MEDS: ASPIRIN PO SCH (09:15)
--- NOTE | 2018-02-24 15:02 | PROGRESS NOTE ---
DATE: 02/24/2018 SUBJECTIVE: The patient is sitting up eating breakfast. He states that he feels a lot better. He is still requiring supplemental oxygen. OBJECTIVE: Vital Signs: Temperature 97.5 degrees, blood pressure 95/55, heart rate 79, respirations 16, O2 saturation 97% on 3 L nasal cannula. Urine output is 550. GENERAL: This is an elderly male sitting up in bed, in no acute distress.Heart : S1, S2 normal. Lungs: Equal air entry bilaterally. No wheezing. No rales. Abdomen: Positive bowel sounds. Soft, nontender, nondistended. Extremities: No edema. No cyanosis. Neurologic: The patient is alert and oriented x3. LABORATORY DATA: White blood cell count 11, hemoglobin 13, hematocrit 41, platelets 344,000. Sodium 139, potassium 4.1, chloride 100, CO2 24, BUN 35, creatinine 1.4, glucose 176, calcium 9.3. ASSESSMENT AND PLAN: 1. Atrial flutter status post transesophageal echocardiogram with cardioversion. The patient is in normal sinus rhythm. Continue on Lopressor and Eliquis. 2. Acute pulmonary edema. Improved. Continue with diuretic therapy. 3. Diabetes mellitus type 2. Continue with sliding scale insulin. 4. Diabetic neuropathy. Continue on gabapentin. 5. Hypertension. Controlled. 6. Disposition. The patient is medically stable for discharge home. Changer Fixer is working on obtaining home oxygen for the patient through the [employer]. cc: Basia Fragoso MD [facility]PITALAlexis
[2018-02-24 15:24] VITALS: BP 97/49
--- NOTE | 2018-02-27 10:59 | ECHO REPORT ---
ORDER DATE: 02/23/2018 PROCEDURE: Transesophageal echocardiography. SUMMARY: After intravenous conscious sedation per Anesthesiology with propofol, I passed transesophageal echocardiography probe into the patient's esophagus without difficulty. Transesophageal echocardiography was performed without incident and demonstrated: 1. Aortic valve is trileaflet and opens normally on 2-dimensional images. There is trace aortic regurgitation. Mitral, tricuspid, and pulmonic valves are without evidence of structural abnormality with very mild mitral regurgitation. Aortic root is normal size. 2. Normal left ventricular dimensions suggested. Estimated left ventricular ejection fraction appears to be at least 60%. No regional wall motion abnormalities are evident. Left atrium, right atrium, right ventricle, are normal in size with grossly preserved right ventricular systolic function. All 4 cardiac chambers and left atrial appendage appear free of intracardiac thrombus. 3. Interatrial septum appears intact on 2-dimensional images. Intravenous agitated saline contrast study demonstrates early appearance of a few bubbles, although site of transition is not apparent on study. Possible small PFO cannot be excluded. 4. Descending thoracic aorta demonstrates occasional moderate focal atherosclerotic plaque. cc: MD Paul Winn MD
--- NOTE | 2018-03-06 05:21 | DISCHARGE SUMMARY ---
ADMISSION DATE: 02/21/2018 DISCHARGE DATE: 02/24/2018 FINAL DISCHARGE DIAGNOSES: 1. Atrial flutter, status post transesophageal echocardiogram with cardioversion. 2. Acute pulmonary edema. 3. Diabetic neuropathy. 4. Diabetes mellitus type 2. 5. Hypertension. 6. Chronic obstructive pulmonary disease. 7. Tobacco dependence. CONSULTATIONS REQUESTED DURING THIS HOSPITAL STAY: 1. Pulmonary consultation with Dr. Sumit An. 2. Cardiology consultation with Dr. Paul Ferrara. PROCEDURES PERFORMED: Transesophageal echocardiogram with cardioversion. HOSPITAL COURSE: Mr. Forde is a 72-year-old male with a history of multiple medical problems, who initially presented to the ER with a chief complaint of shortness of breath. On admission, a chest x-ray was done that revealed pulmonary fibrosis and pulmonary edema. The patient was admitted to the hospitalist service, and Cardiology and Pulmonary were consulted. The patient does have an extensive smoking history. An echocardiogram was done that revealed an ejection fraction of 60% and a tiny posterior pericardial effusion. The patient was started on diuretic therapy. While being monitored, the patient was noted to be in atrial flutter with occasions of atrial fibrillation. The patient was assessed by the cotton ball machine tender and determined that the patient would benefit from a DK with cardioversion. The patient underwent DK with cardioversion on February 23, 2018. Following the procedure, the patient was noted to be in normal sinus rhythm. The patient's respiratory status improved as a result. On admission, the patient was placed on 3 L nasal cannula. Attempts were made to wean the patient off supplemental oxygen. However, the patient was noted to have an oxygen saturation of 88% on room air which meant that he qualified for home oxygen. [employer] was consulted to assist with arranging for home oxygen. The oncology social work stated that this would have to be arranged in conjunction through the [facility] since the patient is a . This was explained to the patient, and he was told that his discharge might be delayed to obtain his home oxygen. The patient stated that he did not want to wait to get the home oxygen and decided to leave the hospital against medical advice. The patient was discouraged from leaving the hospital before obtaining his oxygen. He was told that he runs the risk of severe disability and even without the supplemental oxygen. The patient stated that he was willing to take the risk and left the hospital against medical advice. cc: Basia Fragoso MD
== END 2018-02-24 16:00 | disposition home or self-care (01) ==
LOC: ED 12:53 → 4N 12:53 → SUATTDRO 17:48
PROVIDERS: ATTEND Internal Medicine
CPT/HCPCS: 71010; 71020; 71045; 71046; 80048; 80053; 80061; 82550; 82805; 82948; 83036; 83735; 83880; 84132; 84443; 84484; 85025; 85610; 85730; 87040; 92960; 93005; 93010; 93306; 93312; 94640; 94761; 94799; 96365; 96366; 96375; 99285; A9270; J0696; J1644; J1940; J1956; J2920; J2930; J7030; XXXXX

== ENCOUNTER 2018-04-06 08:25 | Inpatient (IN) ==
[2018-04-06] MEDS ORDERED: NS 1,000 ML IV ONE ×3 (08:39→09:28)
[2018-04-06] MEDS ORDERED: SOLU-MEDROL IV ONE (08:39)
[2018-04-06] MEDS ORDERED: DUONEB (A & A) INH ONE (08:39)
[2018-04-06] MEDS ORDERED: MORPHINE IV ONE (08:41)
[2018-04-06] MEDS ORDERED: ZOFRAN IV ONE (08:41)
[2018-04-06] MEDS ORDERED: LASIX IV ONE (08:41)
[2018-04-06 09:04] LABS: BASO# 0.04 X1000 (0.0-0.2); BASO% 0.3 % (0.0-0.8); EOS# 0.18 X1000 (0.0-0.7); EOS% 1.1 % (0.0-10.0); HEMATOCRIT 38.6 % (42.0-52.0); HEMOGLOBIN 12.6 g/dL (14.0-18.0); IMM GRAN# 0.07 X1000 (0.0-0.04); IMM GRAN% 0.4 % (0.0-0.5); MCH 28.3 PG (27-31); MCHC 32.6 g/dL (33-37); MCV 86.7 FL (81-99); MONO# 1.44 X1000 (0.11-0.59); MPV 10.9 FL (7.4-10.4); NEUT# 12.62 X1000 (1.4-6.5); NEUT% 79.2 % (42.2-75.2); PLT 323 X1000 (130-400); RBC 4.45 XMIL (4.7-6.1); WBC 15.95 X1000 (4.8-10.8)
[2018-04-06 09:08] LABS: INR 1.33; PROTIME 17.6 Seconds (11.0-16.0)
[2018-04-06 09:11] LABS: PTT 44.4 Seconds (22.3-41.8)
[2018-04-06 09:14] LABS: D-DIMER 0.95 ug/mLFEU (0.0-0.52)
[2018-04-06 09:16] LABS: ALLEN TEST YES; BE -2.3 mmoll (-3.0-3.0); BLOOD TYPE ARTERIAL; HCO3-(ACT) 22.8 mmoll (20.0-26.0); METHB 0.6 % (0.0-1.5); O2(CT) 13.8 mL/dL (15.0-23.0); PCO2(98.6) 31 mmHg (35-45); SAMPLE BLOOD; SAO2 85.1 % (95.0-100.0); pH(98.6) 7.44 (7.35-7.45)
--- NOTE | 2018-04-06 09:16 | Diag Imaging Result Doc PS360 ---
CHEST-PORTABLE - 04/06/2018 INDICATION: sob COMPARISON: 02/22/2018 FINDINGS: There has been worsening in the diffuse bilateral interstitial infiltrates, that have been waxing and waning over several chest x-rays. The heart size is top normal. No pneumothorax or significant pleural effusion. IMPRESSION: Waxing and waning, diffuse bilateral interstitial infiltrates. Likely represents pulmonary edema. Electronically signed by Dusty Pedraza 04/06/2018 9:13 AM
[2018-04-06 09:19] LABS: O2HB 82.1 % (95.0-99.0); PO2(98.6) 45 mmHg (60-100)
[2018-04-06 09:20] LABS: MODALITY VENTIMASK
[2018-04-06 09:24] LABS: ALBUMIN 4.3 g/dL (3.5-5.0); CALCIUM 9.1 mg/dL (8.8-10.2); CREATININE 1.3 mg/dL (0.7-1.2); MAGNESIUM 1.7 mg/dL (1.5-2.7); POTASSIUM 3.8 mmol/L (3.5-5.1); TOTAL BILIRUBIN 1.43 mg/dL (0.20-1.00); TOTAL PROTEIN 6.4 g/dL (6.3-8.3)
[2018-04-06] MEDS ORDERED: VANCOMYCIN 1 GM/NS 1 GM/250 ML IVPB IV ONE (09:27)
[2018-04-06] MEDS ORDERED: ZOSYN 4.5 GM in NS 100 ML IV ONE (09:27)
[2018-04-06] MEDS: LEVAQUIN 750 MG/D5W 750 MG/150 ML IVPB IV ONE ×2 (09:45→10:20)
[2018-04-06] MEDS ORDERED: NITROGLYCERIN TOP ONE (10:11)
--- NOTE | 2018-04-06 10:12 | PROVIDER DOCUMENTATION ---
This chart was entered by Yvette Duque Scribe, acting as scribe for Kamlesh Lechuga MD. HPI-Respiratory General - General Chief Complaint: Shortness of Breath Stated Complaint: SOB Time Seen by Provider: 04/06/18 08:33 Source: patient Allergies/Adverse Reactions: Patient Allergies Allergy/AdvReac Type Severity Reaction Status Date / Time No Known Allergies Allergy Verified 04/06/18 09:30 Home Medications: Home Medication List Medication Instructions Recorded Confirmed Last Taken Type Amlodipine Besylate 10 mg PO DAILY 11/28/17 04/06/18 1 Day Ago History ~11/27/17 10mg Atorvastatin Calcium 80 mg PO DAILY 11/28/17 04/06/18 1 Day Ago History ~11/27/17 80mg Gabapentin 300 mg PO DAILY 11/28/17 04/06/18 1 Day Ago History ~11/27/17 300mg Lisinopril 20 mg PO DAILY 11/28/17 04/06/18 1 Day Ago History ~11/27/17 20mg Metformin HCl 1,000 mg DAILY 11/28/17 04/06/18 1 Day Ago History ~11/27/17 1000mg Multivit with Iron,Minerals 1 tab PO DAILY 11/28/17 04/06/18 1 Day Ago History [Spectravite Senior] ~11/27/17 Venlafaxine HCl [Venlafaxine HCl 150 mg PO DAILY 11/28/17 04/06/18 1 Day Ago History ER] ~11/27/17 150mg Furosemide [Lasix] 40 mg PO DAILY 02/22/18 04/06/18 Unknown History Apixaban [Eliquis] 5 mg PO BID #60 tab 02/24/18 04/06/18 Unknown Rx Aspirin EC 81 mg PO DAILY #30 tab 02/24/18 04/06/18 Unknown Rx Metoprolol [Lopressor] 25 mg PO BID #60 tab 02/24/18 04/06/18 Unknown Rx - History of Present Illness-Resp Nature of Presenting Problem: 72 yom presents to the ed with c/o sob and cough. [facility] 1 month prior for chf and copd. pt uses home O2 @3 LPM but hs been home adjusting O2 up to 6 LPM without relief. pt presented to ed in moderate distress and anxious Quality of Pain: reports: none Severity in ED: reports: moderate Onset/Duration: reports: other (1 month) Timing: reports: still present, intermittent Context: reports: recent foreign travel Cough Quality/Degree: reports: moderate Episode Frequency: frequent episodes Current Respiratory Medication Therapy: Initiated see nurses note Modifying Factors: improves with: nothing. worse with: exertion, lying down Associated Symptoms: reports: cough, hurts to breathe, shortness of breath, wheezing Similar Symptoms Previously?: Yes Recently seen or treated by another doctor?: Yes (was admited 1 month prior) Review of Systems - Adult - REVIEW OF SYSTEMS - ADULT Constitutional: denies: chills, fever, fatique Eyes: reports: no symptoms reported Ears, Nose, Mouth & Throat: reports: no symptoms reported Cardiovascular: denies: chest pain, syncope Respiratory: reports: see HPI, cough, dyspnea on exertion, shortness of breath, wheezing Gastrointestinal: denies: abdominal pain, diarrhea, nausea, vomiting Genitourinary: reports: no symptoms reported Musculoskeletal: denies: back pain, neck pain Integumentary: reports: no symptoms reported Neurological: denies: dizziness/vertigo, headache/migraines Psychiatric: reports: no symptoms reported Endocrine: reports: no symptoms reported Hematologic/Lymphatic: reports: no symptoms reported Allergic/Immunologic: reports: no symptoms reported All Other Systems: Reviewed and Negative Past History - Adult - PAST MEDICAL HISTORY-ADULT Review of Records: reports: Old Records Reviewed, Nursing Assessment Review, Medications Reviewed, Social history reviewed & non-contributory. Major Childhood Illnesses: reports: denies history Cardiovascular: reports: A-Fib, CAD, CHF, HTN, hyperlipidemia Respiratory: reports: COPD Gastrointestinal: reports: denies history Genitourinary: reports: denies history Musculoskeletal: reports: denies history Neurological: reports: denies history Psychiatric: reports: anxiety Endocrine/Immune: reports: denies history Other Conditions: reports: denies history - PRIOR SURGERIES/PROCEDURES Surgical/Procedure History: reports: reviewed, not pertinent - IMMUNIZATION STATUS Childhood Immunizations: See Nurse Assessment Flu Vaccine: See Nurse Assessment - FAMILY HISTORY Family History: reviewed, not pertinent - SOCIAL HISTORY Smoking: denies Substance Use: denies Living Situation: family Physical Exam-General - PHYSICAL EXAM-ADULT Initial Vital Signs Reviewed: Yes - CONSTITUTIONAL General Appearance: alert, moderate distress - EYES Eyes: PERRL/EOMI, pink conjunctivae - HEAD, EARS, NOSE, MOUTH & THROAT HENMT: moist mucous membranes, normal ENT inspection - NECK Neck: non-tender, full range of motion, normal inspection - RESPIRATORY Respiratory: chest non-tender, respiratory distress, rhonchi (diffuse), wheezing , increased rate (26) - CARDIOVASCULAR Cardiovascular: normal peripheral pulses, tachycardia (103) - GASTROINTESTINAL (ABDOMEN) Abdominal Exam: normal bowel sounds, non tender, soft - LYMPHATIC Lymphatic: no adenopathy - MUSCULOSKELETAL Back Exam: normal inspection Extremity: normal range of motion, swelling (BLE edema +1) - SKIN Integumentary: normal color, normal turgor, warm/dry - NEUROLOGIC Neurologic: grossly normal, no motor/sensory deficits - PSYCHIATRIC Psych/Mental Status: normal thought content, normal thought process, oriented x 3, anxious - HEART Score HEART Score: History: Slightly Suspicious HEART Score: ECG: Non-Specific Repolarization Disturbance/LBBB/PM HEART Score: Age: > or = 65 Years HEART Score: Risk Factors for Atherosclerotic Disease: > or = 3 Risk Factors or History of Atherosclerotic Disease HEART Score: Troponin: < or = Normal Limit (Moderate risk) Total HEART Score:: 5 Progress - PLAN OF CARE/RESULTS Progress/Plan/Lab Results: Vital Signs - 8 hr 04/06/18 08:35 04/06/18 08:41 04/06/18 08:43 Pulse Rate 94 H 94 H Respiratory Rate 22 30 H Blood Pressure 162/84 161/81 161/81 O2 Sat by Pulse Oximetry 69 L 85 L 84 L 04/06/18 08:55 04/06/18 09:02 Pulse Rate 94 H 94 H Respiratory Rate 22 23 Blood Pressure 135/69 O2 Sat by Pulse Oximetry 85 L 88 L 04/06/18 09:07 Influenza Screen - Final Nasopharyngeal Laboratory Results - last 24 hr 04/06/18 04/06/18 04/06/18 08:40 08:40 08:40 WBC 15.95 H RBC 4.45 L Hgb 12.6 L Hct 38.6 L MCV 86.7 MCH 28.3 MCHC 32.6 L RDW Std Deviation 17.0 H Plt Count 323 MPV 10.9 H Immature Gran % (Auto) 0.4 Neut % (Auto) 79.2 H Lymph % (Auto) 10.0 L [place] % (Auto) 9.0 Eos % (Auto) 1.1 Baso % (Auto) 0.3 Immature Gran # (Auto) 0.07 H Neut # (Auto) 12.62 H Lymph # (Auto) 1.60 [place] # (Auto) 1.44 H Eos # (Auto) 0.18 Baso # (Auto) 0.04 PT 17.6 H INR 1.33 PTT (Actin FS) 44.4 H D-Dimer, Quantitative 0.95 H Specimen Type Sample Site pH pCO2 pO2 HCO3 Base Excess Oxyhemoglobin ABG O2 Sat (Calculated) ABG O2 Saturation ABG Carboxyhemoglobin ABG Methemoglobin Rene Test A-a O2 Difference Total Hemoglobin Lactate Liter Flow Blood Gas Modality FiO2 % Sodium 136 Potassium 3.8 Chloride 97 L Carbon Dioxide 21 L Anion Gap 18 BUN 22 Creatinine 1.3 H Estimated GFR/1.73 m2 54 BUN/Creatinine Ratio 17 Glucose 221 H POC Glucose Calculated Osmolality 282 Calcium 9.1 Magnesium 1.7 Total Bilirubin 1.43 H AST 22 ALT 33 Alkaline Phosphatase 113 Creatine Kinase 27 Troponin T Bvx-V-[place] Pept Total Protein 6.4 Albumin 4.3 Globulin 2.1 Albumin/Globulin Ratio 2.0 Plasma Lactate 04/06/18 04/06/18 04/06/18 08:40 08:40 08:40 WBC RBC Hgb Hct MCV MCH MCHC RDW Std Deviation Plt Count MPV Immature Gran % (Auto) Neut % (Auto) Lymph % (Auto) [place] % (Auto) Eos % (Auto) Baso % (Auto) Immature Gran # (Auto) Neut # (Auto) Lymph # (Auto) [place] # (Auto) Eos # (Auto) Baso # (Auto) PT INR PTT (Actin FS) D-Dimer, Quantitative Specimen Type Sample Site pH pCO2 pO2 HCO3 Base Excess Oxyhemoglobin ABG O2 Sat (Calculated) ABG O2 Saturation ABG Carboxyhemoglobin ABG Methemoglobin Reen Test A-a O2 Difference Total Hemoglobin Lactate Liter Flow Blood Gas Modality FiO2 % Sodium Potassium Chloride Carbon Dioxide Anion Gap BUN Creatinine Estimated GFR/1.73 m2 BUN/Creatinine Ratio Glucose POC Glucose Calculated Osmolality Calcium Magnesium Total Bilirubin AST ALT Alkaline Phosphatase Creatine Kinase Troponin T < 0.010 Ovt-J-Cnainmdfhbd Pept 1815 H Total Protein Albumin Globulin Albumin/Globulin Ratio Plasma Lactate 4.3 H 04/06/18 04/06/18 09:00 09:10 WBC RBC Hgb Hct MCV MCH MCHC RDW Std Deviation Plt Count MPV Immature Gran % (Auto) Neut % (Auto) Lymph % (Auto) [place] % (Auto) Eos % (Auto) Baso % (Auto) Immature Gran # (Auto) Neut # (Auto) Lymph # (Auto) [place] # (Auto) Eos # (Auto) Baso # (Auto) PT INR PTT (Actin FS) D-Dimer, Quantitative Specimen Type ARTERIAL Sample Site R RADIAL pH 7.44 pCO2 31 L pO2 45 L* HCO3 22.8 Base Excess -2.3 Oxyhemoglobin 82.1 L* ABG O2 Sat (Calculated) 13.8 L ABG O2 Saturation 85.1 L ABG Carboxyhemoglobin 2.90 H ABG Methemoglobin 0.6 Rene Test YES A-a O2 Difference 201.0 Total Hemoglobin 12.0 Lactate 3.20 H Liter Flow 10.0 Blood Gas Modality VENTIMASK FiO2 % 40.0 Sodium Potassium Chloride Carbon Dioxide Anion Gap BUN Creatinine Estimated GFR/1.73 m2 BUN/Creatinine Ratio Glucose POC Glucose 222 H Calculated Osmolality Calcium Magnesium Total Bilirubin AST ALT Alkaline Phosphatase Creatine Kinase Troponin T Bfq-N-Xuodpygemkf Pept Total Protein Albumin Globulin Albumin/Globulin Ratio Plasma Lactate Orders Category Date Time Status Cardiac Monitoring DIRECTED Care 04/06/18 08:37 Active Finger Stick Blood Sugar (ED) DIRECTED Care 04/06/18 08:37 Active Misc. NRSG Communication Order DIRECTED Care 04/06/18 09:28 Active Saline Loc NOW Care 04/06/18 08:38 Active CHEST-PORTABLE [RAD] Stat Exams 04/06/18 08:39 Completed ABG [RESP] Routine Lab 04/06/18 09:00 Completed BLOOD CULTURE [BLDCUL] Stat Lab 04/06/18 09:48 Received CBC WITH ELECTRONIC DIFF [HEME] Stat Lab 04/06/18 08:40 Completed CK PROFILE [SP CHEM] Stat Lab 04/06/18 08:40 Completed COMPREHENSIVE METABOLIC PANEL [CHEM] Stat Lab 04/06/18 08:40 Completed D-DIMER [COAG] Stat Lab 04/06/18 08:40 Completed INFLUENZA SCREEN A/B Stat Lab 04/06/18 09:07 Completed LACTATE, PLASMA [CHEM] Stat Lab 04/06/18 08:40 Completed MAGNESIUM [CHEM] Stat Lab 04/06/18 08:40 Completed PRO B-NATRIURETIC PEPTIDE Stat Lab 04/06/18 08:40 Completed PROTIME WITH INR [COAG] Stat Lab 04/06/18 08:40 Completed PTT [COAG] Stat Lab 04/06/18 08:40 Completed SPUTUM CULTURE WITH GRAM STAIN [RM] Stat Lab 04/06/18 08:39 Uncollected TROPONIN T Stat Lab 04/06/18 08:40 Completed URINALYSIS W/POSS RFLX CULT [URINALYSIS] Stat Lab 04/06/18 08:39 Uncollected 0.9% Sodium Chloride Inj [Ns] 1,000 ml Med 04/06/18 08:39 Discontinued IV 999 mls/hr 0.9% Sodium Chloride Inj [Ns] 1,000 ml Med 04/06/18 09:26 Active IV 999 mls/hr 0.9% Sodium Chloride Inj [Ns] 1,000 ml Med 04/06/18 09:28 Active IV 999 mls/hr Albuterol 2.5MG/Ipratrop 0.5MG [Duoneb (A & A)] Med 04/06/18 08:39 Discontinued 9 ml INH NOW ONE Furosemide [Lasix] Med 04/06/18 08:41 Discontinued 80 mg IV NOW ONE Levofloxacin 750 mg/D5w [Levaquin 750 mg/D5w] Med 04/06/18 09:27 Active 750 mg in 150 ml IV NOW Methylprednisolone Sod Succ [Solu-Medrol] Med 04/06/18 08:39 Discontinued 125 mg IV NOW ONE Morphine Med 04/06/18 08:41 Discontinued 2 mg IV NOW ONE Ondansetron [Zofran] Med 04/06/18 08:41 Discontinued 4 mg IV NOW ONE Piperacillin/Tazobactam [Zosyn] 4.5 gm Med 04/06/18 09:27 Active 0.9% Sodium Chloride Inj [Ns] 100 ml IV NOW Vancomycin 1 gm/Ns Med 04/06/18 09:27 Active 1 gm in 250 ml IV NOW Aerosol Treatments Routine Oth 04/06/18 08:40 Completed Aerosol Treatments Stat Oth 04/06/18 08:40 Completed Oxygen Device Stat Oth 04/06/18 08:38 Completed EKG [EKG] Stat Ther 04/06/18 08:38 Ordered per dt jesus p02 45 pH 7.44 pC02 31 Bicrb 22.8 ABG 02 SAT 82.1 Result Diagrams: 04/06/18 08:40 04/06/18 08:40 - REASSESSMENT Reassessment #1 Time Reassessed: 09:58 (pt has improvedon 50% venti mask) Status: improving Reassessment Comment: dr lechuga at bedside - XRAY 1 XRAY: Bilateral XRAY Study: Chest Impression: See EMR Report (CHEST-PORTABLE - 04/06/2018 INDICATION: sob COMPARISON: 02/22/2018 FINDINGS: There has been worsening in the diffuse bilateral interstitial infiltrates, that have been waxing and waning over several chest x-rays. The heart size is top normal. No pneumothorax or significant pleural effusion. IMPRESSION: Waxing and waning, diffuse bilateral interstitial infiltrates. Likely represents pulmonary edema. Electronically signed by Dusty Pedraza 04/06/2018 9:13 AM [id number] Interpreting Physician: Dusty Pedraza MD Dictated Date/Time: 04/06/18 09 cc: Kamlesh Lechuga MD; None,PCP) - CONSULTS/PCP/HOSPITALIST Notification #1 *Consult/PCP/Hospitalist*: DIVINA Boo Time Discussed: 10:09 [facility] Consult Disposition: Will see in ED Departure - Departure Date of Disposition Decision: 04/06/18 Time of Disposition Decision: 10:09 DIAGNOSIS: Acute respiratory failure with hypoxemia, Sepsis due to pneumonia, COPD with exacerbation Acute exacerbation of congestive heart failure Qualifiers: Heart failure type: combined systolic and diastolic Qualified Code(s): I50.43 - Acute on chronic combined systolic (congestive) and diastolic (congestive) heart failure Disposition: ADMITTED INPATIENT 09 Certified Medical Emergency: Emergent Condition: Fair Referrals and Follow-Ups: None,PCP [Primary Care Provider] - - Critical Care Note This patient required my direct & personal management of CC.: Yes Total Time (mins): 38 Critical Care Statement: This patient required my direct personal management to treat or rule out processes, the absence of which, could potentiallly result in sudden, clinically significant life or limb threatening deterioration. Attestation - Physician/ PEREZ Attestation Patient care was provided by Advanced Practice Provider:: No The physician spent face to face time with patient:: Yes Advanced Practice Provider documentation review:: Supervising physician onsite and consulted in the evaluation and care of this patient. The physician did have a face to face encounter with the patient. This chart was documented by the indicated scribe, (Yvette Duque Scribe) and accurately reflects the services I performed and decisions made by me, Kamlesh Lechuga MD, as attested by the provider's signature.
--- NOTE | 2018-04-06 10:35 | ED EKG INTERP ---
EKG Interpretation - EKG Time of EKG reading by physician:: 10:24 EKG Read and Signed by:: Kamlesh Lechuga EKG Interpretation (*Must complete 3 of following elements*): Abnormal Rate: 96 Rhythm: Afib [place]: right QRS: RBB ST Wave: non-specific ST changes Attestation - Physician/ PEREZ Attestation Patient care was provided by Advanced Practice Provider:: No The physician spent face to face time with patient:: Yes Advanced Practice Provider documentation review:: Supervising physician onsite and consulted in the evaluation and care of this patient. The physician did have a face to face encounter with the patient.
--- NOTE | 2018-04-06 10:57 | EKG Report ---
Test Performed on : 04/06/2018 10:21:51 AM Test Reason : short of breath Blood Pressure : / mmHG Vent. Rate : 096 BPM Atrial Rate : 111 BPM P-R Int : 000 ms QRS Dur : 144 ms QT Int : 386 ms P-R-T Axes : 000 094 -02 degrees QTc Int : 487 ms Atrial fibrillation. Right bundle branch block Abnormal ECG When compared with ECG of 23-FEB-2018 12:20, Atrial fibrillation. has replaced Sinus rhythm. Nonspecific T wave abnormality now evident in Inferior leads Unconfirmed Result
[2018-04-06 11:29] LABS: URINE SOURCE CLEAN CATCH
[2018-04-06 11:32] LABS: BILIRUBIN URINE NEGATIVE (NEGATIVE); BLOOD URINE NEGATIVE (NEGATIVE); COLOR YELLOW; GLUCOSE URINE NEGATIVE (NEGATIVE); KETONE URINE NEGATIVE (NEGATIVE); LEUKOCYTES URINE NEGATIVE (NEGATIVE); NITRITE URINE NEGATIVE (NEGATIVE); PROTEIN URINE NEGATIVE (NEGATIVE); SP GRAVITY URINE 1.001; TURBIDITY URINE CLEAR (CLEAR); UROBILINOGEN URINE NORMAL (NORMAL)
[2018-04-06 11:33] LABS: UR EPITHELIAL CELLS <10 /HPF (<10); URINE BACTERIA NEGATIVE /HPF; URINE RBC <10 /HPF (<10); URINE WBC <10 /HPF (<10)
--- NOTE | 2018-04-06 11:36 | Diag Imaging Result Doc PS360 ---
EXAM: CT ANGIOGRM PULMONARY ARTERIES 04/06/2018 HISTORY: hypoxemia and respiratory distress, positive d-dim TECHNIQUE: This exam was performed using automated exposure control, adjustment of mA or kV according to patient size, and/or use of iterative reconstruction technique. COMMENT: 3-D MIPS were performed. There are no previous studies. There are fairly large bilateral pleural fluid collections. There is no evidence of filling defect in the pulmonary arteries. There are atherosclerotic calcifications in the aorta and its branches without evidence of dissection or aneurysm. This includes calcification in the left main and anterior descending coronary arteries. There is mediastinal adenopathy with a right paratracheal node measuring 2.5 cm and a aorticopulmonary window node measuring in excess of 2.6 cm. This contains a small nodular calcification. There are also calcifications in the left hilum. There is bilateral hilar adenopathy. There are spondylotic changes in the thoracic spine. There is volume loss and consolidation in the right lower lobe. There is generally increased interstitial opacity throughout both lungs with apparent emphysematous changes in the upper lung zones. There is some patchy consolidation present in the upper lobes particularly the right upper lobe. IMPRESSION: No evidence of pulmonary emboli. Pulmonary edema, pleural effusions, and patchy pneumonia and/or atelectasis. Electronically signed by Cezar Stanley 04/06/2018 11:33 AM
[2018-04-06] MEDS ORDERED: SODIUM CHLORIDE 0.9% INJ SCH (11:57)
[2018-04-06] MEDS ORDERED: VANCOMYCIN IV PER PHARMACY MISC SCH (11:57)
[2018-04-06] MEDS ORDERED: DUONEB (A & A) INH PRN (11:57)
[2018-04-06] MEDS: MAXIPIME 2 GM in NS 100 ML IV SCH (12:28)
[2018-04-06] MEDS: PROTONIX IV SCH (12:28)
[2018-04-06] MEDS: SOLU-MEDROL IV SCH ×2 (12:29→20:39)
--- NOTE | 2018-04-06 13:25 | HISTORY AND PHYSICAL ---
PRIMARY CARE PHYSICIAN: [facility]. CHIEF COMPLAINT: Dyspnea. HISTORY OF PRESENT ILLNESS: Mr. Forde is a 72-year-old male with a history of paroxysmal atrial fibrillation, status post DC cardioversion last month at our facility. He also has a history of coronary artery disease, hypertension, diabetes mellitus, COPD , hyperlipidemia. He states that since he left our facility last month, he has had continued shortness of breath with substantial worsening over the past few days. He went to the [place] last week and was seen in the ER. Per his report, he had multiple tests and was given IV antibiotics, and discharged home. He has been trying to get in with a animal bounty hunter but has not had much luck doing so. His breathing became significantly worse over the past 24 hours, and he came into the ER today for respiratory distress. Initially, his O2 saturations were noted to be in the 60s with a subsequent ABG on Venturi mask showing severe hypoxemia on Venturi mask. A chest x-ray was done which showed question of pulmonary edema. Subsequent CTA of the chest showed patchy infiltrates and pleural effusions bilaterally. His laboratory data shows an elevated white count. Given the above, we have placed him on BiPAP and will place him in the ICU for hypoxemic respiratory failure along with possible healthcare acquired pneumonia. PAST MEDICAL HISTORY: 1. Paroxysmal atrial fibrillation status post DC cardioversion last month. 2. Question of PFO on echocardiogram done last month. 3. COPD. 4. Coronary artery disease with stent to the RCA. 5. Diabetes mellitus type 2, not requiring insulin. PAST SURGICAL HISTORY: 1. Bilateral knee arthroplasty. 2. Appendectomy. 3. Coronary stenting. SOCIAL HISTORY: The patient has a significant history of nicotine dependence, however, he quit for 40 years. Denies alcohol or drug use. He is retired from [employer]. His is at the bedside. FAMILY HISTORY: Noncontributory. ALLERGIES: No known drug allergies. HOME MEDICATIONS: 1. Norvasc 10 mg daily. 2. Atorvastatin 80 mg daily. 3. Lasix 40 mg daily. 4. Neurontin 300 mg p.o. daily. 5. Lisinopril 20 mg daily. 6. Metformin 1000 mg daily. 7. Multivitamin 1 daily. 8. Venlafaxine 150 mg p.o. daily. 9. Eliquis 5 mg p.o. b.i.d. 10.Aspirin 81 mg daily. 11.Lopressor 25 mg b.i.d. REVIEW OF SYSTEMS: A 14-point review of systems obtained and found to be negative with the exception of the HPI. PHYSICAL EXAMINATION: VITAL SIGNS: Blood pressure 134/62, heart rate 73, respiratory rate 27, O2 saturation 93% on BiPAP, temperature 97.8. GENERAL: This is an overweight male lying in the hospital bed in moderate to severe respiratory distress. NEUROLOGIC: He is awake, alert and oriented, follows commands. No focal deficits. HEENT: Head is atraumatic and normocephalic. His pupils are equal, round and reactive to light. Oral mucosa is moist. Trachea is midline. There is no JVD. CHEST: Severely diminished with inspiratory and expiratory wheezes and crackles bilaterally. CARDIOVASCULAR: Irregular rate and rhythm. S1 and S2 are noted. There are no appreciable murmurs. ABDOMEN: Soft, nondistended, nontender. Bowel sounds positive. EXTREMITIES: 1+ edema bilaterally. Pulses palpable. DIAGNOSTIC DATA: WBC 15.95, hemoglobin 12.6, hematocrit 38.6, platelet count 323. INR 1.33. D- dimer 0.95. ABG on 40% Venturi mask: pH 7.44, CO2 31, O2 45, bicarbonate 22.8 , oxyhemoglobin 82.1. Sodium 136, potassium 3.8, chloride 97, CO2 21, anion gap 18, BUN 22, creatinine 1.3, glucose 221. Calcium 9.1, magnesium 1.7, total bilirubin 1.43, AST 22, ALT 33, alkaline phosphatase 113. Troponin negative. ProBNP 1815. Lactic acid 4.3. UA is negative. ASSESSMENT AND PLAN: 1. Acute hypoxemic respiratory failure: Given the white count and the infiltrates on CT, we will treat him for presumed bilateral pneumonia. Will continue BiPAP. Obtain blood and sputum cultures. Start the patient on broad spectrum antibiotics with MRSA coverage as he was recently hospitalized here. Will consult Pulmonary, continue breathing treatments, IV steroids and aggressive pulmonary toilet. Check daily chest x-rays and daily lab work. Will continue to trend his lactate and be cautious with fluid administration as he does appear to be volume overloaded. 2. Paroxysmal atrial fibrillation: Currently in atrial fibrillation but rate is controlled. Will be cautious with any rate medications or antihypertensives as he does have evidence of sepsis, however, he is not hypotensive at this time. Will monitor his tele closely and adjust medications as needed. 3. Sepsis: He does have an elevated lactate and is tachycardic, however, not hypotensive. He has been given fluids in the ER as well as 80 mg of Lasix, so will need to watch his volume status closely. Pancultures have been obtained. Continue broad spectrum antibiotics. 4. Coronary artery disease: The patient denies any type of chest pain. EKG does not have any evidence of ischemia. Will monitor this closely, trend his enzymes. Continue his daily aspirin. 5. Diabetes mellitus: Pattern sugars, sliding scale insulin. 6. Deep venous thrombosis prophylaxis with his Eliquis. Further recommendations to follow. Critical care time with this patient is 45 minutes. Dictated by DIVINA Abreu for Robin De La Garza MD cc: DIVINA Abreu MD MTD
[2018-04-06 13:37] LABS: ALLEN TEST YES; BE -3.2 mmoll (-3.0-3.0); BLOOD TYPE ARTERIAL; HCO3-(ACT) 22.3 mmoll (20.0-26.0); METHB 0.7 % (0.0-1.5); O2(CT) 14.6 mL/dL (15.0-23.0); O2HB 91.8 % (95.0-99.0); PCO2(98.6) 35 mmHg (35-45); PO2(98.6) 64 mmHg (60-100); SAMPLE BLOOD; SAO2 94.7 % (95.0-100.0); THB 11.3 g/dL (11.5-17.4); pH(98.6) 7.39 (7.35-7.45)
[2018-04-06 13:38] LABS: MODALITY BI PAP
[2018-04-06] MEDS: MORPHINE IV PRN (13:58)
[2018-04-06] MEDS ORDERED: VANCOMYCIN 1,400 MG in NS 250 ML IV ONE (14:00)
[2018-04-06] MEDS: DUONEB (A & A) INH SCH ×3 (15:52→23:15)
[2018-04-06] MEDS: HUMULIN R SUBQ SCH ×2 (16:03→20:39)
--- NOTE | 2018-04-06 17:52 | HISTORY AND PHYSICAL ---
HISTORY AND PHYSICAL ADDENDUM SUBJECTIVE: The patient came in with shortness of breath. He does have a history of COPD and atrial fibrillation and CHF, presumably diastolic. He came in for difficulty breathing. He was admitted about a week ago, and I think he was in the hospital, he was given IV antibiotics, and discharged home on p.o. antibiotics. He was admitted. He came in, was hypoxic. I do not think he was particularly hypotensive, but he was hypoxic. I do not think he was febrile. Chest x-ray to me looked like a right lower lobe infiltrate with interstitial infiltrates apparently waxing and waning. His CTA showed pulmonary edema, pleural effusions, and patchy pneumonia. OBJECTIVE: General: He is on BiPAP, breathing much more comfortably. Overall, he is just breathing better. Lungs: Airways are more open. Extremities: No lower extremity edema. Neurological: He is awake, alert, oriented. DIAGNOSTIC STUDIES: He does have a white count, some degree of hypoxia, hyperglycemia. ASSESSMENT AND PLAN: 1. Acute hypoxic respiratory failure. Continue BiPAP. Pulmonary has been consulted. 2. Pneumonia, presumably right lower lobe. We will continue antibiotics. He did qualify for sepsis; however, with volume overload, I did not want to give him large amounts of fluid. His lactate has improved without inundation of fluid, and we will continue to follow. 3. Congestive heart failure exacerbation. Continue diuretics and monitor closely. 4. Diabetes. We will continue treating him. Follow very closely. This is a [id number] encounter note with Rajeev Xie. CRITICAL CARE TIME: A 35-minute critical care time for respiratory failure and BiPAP. cc: Robin De La Garza MD
[2018-04-06] MEDS: LASIX IV SCH (18:07)
[2018-04-06] MEDS ORDERED: ELIQUIS PO SCH (21:00)
--- NOTE | 2018-04-06 22:53 | PULMONOLOGY CONSULTATION ---
DATE: 04/06/2018 REQUESTING PHYSICIAN: Robin De La Garza MD. REASON FOR CONSULTATION: Respiratory failure. HISTORY OF PRESENT ILLNESS: Mr. Forde is a 72-year-old white male with a greater than 60-pack- year history for tobacco (nonsmoker x30 years) who was diagnosed with COPD in 2018. The patient had also presented to the hospital in November of 2017 with pulmonary edema and fluid overload. He was admitted to this hospital on 02/22/2018 with increased interstitial markings and shortness of breath while in atrial flutter. He did undergo cardioversion with improvement and it was felt that he might have atrial flutter related to heart failure. He had normal ejection fraction during that time. The patient reports he was discharged but did not significantly improve, and was seen at the [facility] last week and was diagnosed with presumptive pneumonia and received antibiotics without significant improvement. The patient reports he has had a daily cough productive of brownish sputum. The patient returned to the emergency room today with increasing shortness of breath with increasing oxygen requirements. He underwent a CT pulmonary angiogram which reveals bilateral pulmonary infiltrates, areas of consolidation, and pleural effusions. The patient reports he may have had 1 chill, but has not had significant fevers. He was placed on BiPAP and given some diuresis with some clinical improvement. His EKG on presentation revealed atrial fibrillation with a rate of 111. PAST MEDICAL HISTORY/PROBLEM LIST: 1. COPD documented at the [facility]. No pulmonary function studies available at this hospital. 2. Coronary artery disease status post drug-eluting stent in the right coronary artery in 2017. 3. Hypertension. 4. Atrial fibrillation. 5. Diabetes mellitus. 6. Dyslipidemia. SOCIAL HISTORY: The patient is retired. Prior tobacco use as per above. No alcohol use. FAMILY HISTORY: Positive for diabetes. REVIEW OF SYSTEMS: As noted in the HPI. PHYSICAL EXAMINATION: General: Reveals a 72-year-old white male currently on face mask but on BiPAP earlier. His shortness of breath has significantly diminished. Vital Signs: BP 120/67, heart rate 85, respiratory rate 19, oxygen saturation 95% on Venturi mask. HEENT: Pupils are equal and reactive. Oropharynx is clear. Neck: Supple. Chest: Reveals crackles bilaterally. Cardiac: Increased rate, regular rhythm. Abdomen: Soft. Extremities: Reveal trace to 1+ peripheral edema. LABORATORY DATA: White blood count 15.95, hemoglobin 12.6, platelet count 323, 000. Arterial blood gas on BiPAP, pH 7.39, pCO2 of 35, PO2 of 64. IMPRESSION: The patient is a 72-year-old with hemoptysis ([id number] sputum production), anticoagulation, atrial fibrillation, acute hypoxemic respiratory failure, bilateral pleural effusions and areas of consolidation. I suspect his radiographic findings are due to a combination of pulmonary edema and alveolar hemorrhage. He may have a pneumonia, but this is more difficult to confirm. At this juncture, would use low-dose diuretics as you are doing, treat for pneumonia, and hold his anticoagulation at least for 24-48 hours until he has some radiographic improvement. At that time the decision can be made either to continue aspirin with the risk of stroke or to consider a reduced dose of Eliquis. RECOMMENDATIONS: 1. Continue oxygen for hypoxemic respiratory failure and cycle with BiPAP as needed. 2. Hold anticoagulation as outlined above. 3. Continue antibiotics. 4. Continue steroids. 5. Overall prognosis is guarded. cc: Sumit An MD MTDD
[2018-04-07] MEDS: MORPHINE IV PRN ×2 (00:11→12:23)
[2018-04-07] MEDS: MAXIPIME 2 GM in NS 100 ML IV SCH ×3 (00:11→23:25)
[2018-04-07] MEDS: DUONEB (A & A) INH SCH ×6 (03:10→23:30)
[2018-04-07] MEDS: SOLU-MEDROL IV SCH ×2 (03:49→16:10)
[2018-04-07] MEDS: ATIVAN IV PRN ×3 (03:49→20:02)
[2018-04-07 05:19] LABS: BASO# 0.01 X1000 (0.0-0.2); BASO% 0.1 % (0.0-0.8); HEMATOCRIT 33.4 % (42.0-52.0); HEMOGLOBIN 10.9 g/dL (14.0-18.0); IMM GRAN# 0.06 X1000 (0.0-0.04); IMM GRAN% 0.7 % (0.0-0.5); LYMPH# 0.52 X1000 (1.2-3.4); LYMPH% 6.1 % (20.5-51.1); MCH 28.3 PG (27-31); MCHC 32.6 g/dL (33-37); MCV 86.8 FL (81-99); MONO# 0.43 X1000 (0.11-0.59); MPV 10.7 FL (7.4-10.4); NEUT# 7.53 X1000 (1.4-6.5); NEUT% 88.1 % (42.2-75.2); PLT 246 X1000 (130-400); RBC 3.85 XMIL (4.7-6.1); RDW 16.6 % (11.5-14.5); WBC 8.55 X1000 (4.8-10.8)
[2018-04-07 05:35] LABS: ALB/GLOB RATIO 1.3; ALBUMIN 3.8 g/dL (3.5-5.0); CALCIUM 8.8 mg/dL (8.8-10.2); CREATININE 1.4 mg/dL (0.7-1.2); TOTAL BILIRUBIN 0.61 mg/dL (0.20-1.00); TOTAL PROTEIN 6.7 g/dL (6.3-8.3)
[2018-04-07 05:36] LABS: HEMOGLOBIN A1C 6.2 % (4.8-6.0)
[2018-04-07] MEDS: LASIX IV SCH ×2 (05:45→16:10)
[2018-04-07] MEDS: HUMULIN R SUBQ SCH ×4 (06:00→20:02)
[2018-04-07 07:01] LABS: LYMPHS 7 % (21-51); MONO 3 % (1-9); SEGS 90 % (42-75)
[2018-04-07] MEDS: EFFEXOR XR PO SCH (08:42)
[2018-04-07] MEDS: NEURONTIN PO SCH (08:42)
[2018-04-07] MEDS: ASPIRIN EC PO SCH (08:42)
--- NOTE | 2018-04-07 09:23 | Diag Imaging Result Doc PS360 ---
CHEST-PORTABLE - 04/07/2018 INDICATION: Follow up infiltrate COMPARISON: 04/06/2018 FINDINGS: There has been improvement in the diffuse bilateral interstitial infiltrates. There is better visualization of both hemidiaphragms. Stable mild cardiomegaly. No large pleural effusion. IMPRESSION: Improvement in the extensive bilateral infiltrates. Electronically signed by Dusty Pedraza 04/07/2018 9:20 AM
--- NOTE | 2018-04-07 10:11 | PROGRESS NOTE ---
DATE: 04/07/2018 SUBJECTIVE: Overnight events. INTERVAL HISTORY: The patient was kept on BiPAP. In the morning time, he was tried on nasal cannula; however, he desaturated to the low 70s, and so he was put back on a Venturi mask. The patient states he is feeling better than he was yesterday. He denies any chest pain, shortness of breath, or any more coughing. OBJECTIVE: Vital Signs: Currently, his vital signs, he has been afebrile. Temperature of 96.9 degrees, pulse 114 per minute, blood pressure 123/71, saturating 99% on 15 L Venturi mask. General: On physical examination, he appears morbidly obese, in mild distress. HEENT: Oral cavity is moist. Lungs: Air entry equal in bilateral suprascapular region with inspiratory crackles. Significantly decreased air entry in bilateral infrascapular region, likely related to pleural effusion. Cardiovascular: S1 and S2 normal. Tachycardic. Appears sinus rhythm on monitor. No murmur, rub, or gallop. Abdomen: Obese. Nontender. Extremities: Mild lower extremity edema. Input and Output: His input and output suggest -500 mL since admission. DIAGNOSTIC DATA: Labs suggestive of resolution of leukocytosis. Acceptable range of hemoglobin, hematocrit, and platelet count. BMP suggestive of chronic kidney disease stage 3 and hyperglycemia. Microbiology: Blood culture preliminary report does not have any growth. Influenza screen on admission was negative. Repeat chest x-ray performed today morning suggests improvement. ASSESSMENT AND PLAN: 1. Acute hypoxic respiratory failure, likely due to cardiogenic pulmonary edema, presumed bilateral pneumonia, and suspected alveolar hemorrhage secondary to Eliquis use considering his brownish sputum. Continue BiPAP and Venturi mask as tolerated. Continue intravenous vancomycin and intravenous cefepime. Continue intravenous Lasix with close input and output monitoring. Continue albuterol ipratropium nebulization and hold Eliquis. 2. History of paroxysmal atrial fibrillation. Currently in atrial fibrillation and intermittently sinus tachycardia. I will resume his home metoprolol, continue aspirin. Hold Eliquis. 3. Sepsis due to lactic acidosis due to pneumonia. Plan is as mentioned above. 4. History of coronary artery disease and coronary artery stent about 2 years ago. Continue aspirin and statin. I will add home amlodipine, lisinopril as tolerated. 5. History of noninsulin dependent diabetes mellitus. Continue sliding scale insulin. 6. Disposition. The patient remains inside the hospital considering tenuous respiratory status. I will follow up with procalcitonin to guide antibiotic therapy. TIME SPENT: More than 30 minutes of critical care time was spent in taking care of this patient. I called the patient's , who is a surrogate decision maker, and have left a voice message. cc: Guillermo Kingston MD
[2018-04-07] MEDS: LOPRESSOR PO SCH ×2 (10:52→20:02)
[2018-04-07] MEDS: PROTONIX IV SCH (11:34)
[2018-04-07] MEDS: VANCOMYCIN 1,900 MG in NS 500 ML IV SCH (12:03)
--- NOTE | 2018-04-07 12:20 | PULMONOLOGY PROGRESS NOTE ---
DATE: 04/07/2018 SUBJECTIVE: The patient reports he feels better this morning. He has been transitioned off BiPAP, but does desaturate on nasal cannula. OBJECTIVE: Vital Signs: The patient has been afebrile over the last 24 hours, blood pressure 135/75, heart rate 102, respiratory rate 21, oxygen saturation 97%. Intake and output: Intake 690. Output 1175. HEENT: Pupils are equal and reactive. Oropharynx is clear. Neck: Supple. Chest: Reveals crackles in both lung bases. Cardiac: S1, S2. Irregular rhythm. Abdomen: Soft. Extremities: Without significant edema. DIAGNOSTIC STUDIES: Chest x-ray reveals pulmonary infiltrates bilaterally, but less prominent than yesterday morning. White blood count 8.55, hemoglobin 10.9, platelet count 246,000. Sodium 136, potassium 4.0, chloride 99, bicarbonate 27, BUN 30, creatinine 1.4, glucose 240. IMPRESSION: A 72-year-old with: 1. Hemoptysis/brown sputum with alveolar hemorrhage. 2. Acute hypoxemic respiratory failure. 3. Pleural effusions with areas of parenchymal consolidation. 4. Chronic obstructive pulmonary disease (COPD). 5. Coronary artery disease. Overall, patient has had some clinical and radiographic improvement with holding anticoagulation. He has had limited diuresis. I suspect the findings on the chest x-ray/CT scan were a combination of pulmonary edema with alveolar hemorrhage. The patient has a stent that was placed 2 years ago. He does have atrial fibrillation. He is at risk for being off anticoagulation. We will continue to hold anticoagulation at this juncture until pulmonary status improves and then consider restarting Eliquis at a lower dose. RECOMMENDATIONS: 1. Continue to hold Eliquis as outlined above. 2. Continue oxygen and BiPAP as needed for respiratory failure. 3. Continue antibiotics pending clearing of chest x-ray. PROGNOSIS: Overall prognosis is guarded. cc: Sumit An MD
--- NOTE | 2018-04-07 12:47 | EKG Report ---
Test Performed on : 04/07/2018 12:07:20 PM Test Reason : Follow up AFib Blood Pressure : / mmHG Vent. Rate : 097 BPM Atrial Rate : 044 BPM P-R Int : 000 ms QRS Dur : 148 ms QT Int : 400 ms P-R-T Axes : 000 101 -04 degrees QTc Int : 508 ms Undetermined rhythm Right bundle branch block Abnormal ECG When compared with ECG of 06-APR-2018 10:21, (Unconfirmed) Current undetermined rhythm precludes rhythm comparison, needs review Confirmed by Jg GONZALES, Rod Giraldo ([id number]) on 04/07/2018 3:05:15 PM
[2018-04-08] MEDS: MORPHINE IV PRN ×2 (03:16→23:28)
[2018-04-08] MEDS: DUONEB (A & A) INH SCH ×5 (03:30→19:58)
[2018-04-08] MEDS: LASIX IV SCH ×5 (04:51→23:26)
[2018-04-08] MEDS: SOLU-MEDROL IV SCH ×2 (04:51→16:23)
[2018-04-08 05:03] LABS: ALLEN TEST YES; BLOOD TYPE ARTERIAL; HCO3-(ACT) 24.9 mmoll (20.0-26.0); METHB 0.9 % (0.0-1.5); O2(CT) 16.8 mL/dL (15.0-23.0); O2HB 96.6 % (95.0-99.0); PCO2(98.6) 40 mmHg (35-45); PO2(98.6) 118 mmHg (60-100); SAMPLE BLOOD; SAO2 98.9 % (95.0-100.0); THB 12.2 g/dL (11.5-17.4)
[2018-04-08 05:04] LABS: MODALITY BI PAP
[2018-04-08 05:36] LABS: BASO# 0.01 X1000 (0.0-0.2); BASO% 0.1 % (0.0-0.8); HEMATOCRIT 34.5 % (42.0-52.0); HEMOGLOBIN 11.1 g/dL (14.0-18.0); IMM GRAN# 0.04 X1000 (0.0-0.04); IMM GRAN% 0.4 % (0.0-0.5); LYMPH# 0.53 X1000 (1.2-3.4); LYMPH% 4.9 % (20.5-51.1); MCH 28.1 PG (27-31); MCHC 32.2 g/dL (33-37); MCV 87.3 FL (81-99); MONO# 0.74 X1000 (0.11-0.59); MONO% 6.8 % (1.7-9.3); MPV 10.7 FL (7.4-10.4); NEUT% 87.8 % (42.2-75.2); PLT 281 X1000 (130-400); RBC 3.95 XMIL (4.7-6.1); RDW 16.3 % (11.5-14.5); WBC 10.82 X1000 (4.8-10.8)
[2018-04-08 05:49] LABS: AGAP 14; ALB/GLOB RATIO 1.2; ALBUMIN 3.5 g/dL (3.5-5.0); ALKALINE PHOSPHATASE 84 U/L (32-122); BUN 32 mg/dL (8-22); CALCIUM 8.5 mg/dL (8.8-10.2); CHLORIDE 101 mmol/L (98-107); COSMO 291; CREATININE 1.1 mg/dL (0.7-1.2); ESTIMATED GFR > 60; GLUCOSE 259 mg/dL (70-104); GOT 11 U/L (10-34); GPT 24 U/L (10-44); POTASSIUM 3.6 mmol/L (3.5-5.1); SODIUM 138 mmol/L (136-145); TCO2 23 mmol/L (25-35); TOTAL BILIRUBIN 0.39 mg/dL (0.20-1.00); TOTAL PROTEIN 6.5 g/dL (6.3-8.3)
[2018-04-08] MEDS: HUMULIN R SUBQ SCH ×5 (06:01→23:28)
--- NOTE | 2018-04-08 07:11 | Diag Imaging Result Doc PS360 ---
EXAM: CHEST-PORTABLE 04/08/2018 HISTORY: Dyspnea TECHNIQUE: AP portable at 0515 COMMENT: There is interstitial and alveolar opacity bilaterally particularly in the lower lobes. This is worse in the right lower lobe compared to 04/07/2018. IMPRESSION: Slightly worsened pulmonary edema plus minus pneumonia. Electronically signed by Cezar Stanley 04/08/2018 7:08 AM
[2018-04-08] MEDS: LIPITOR PO SCH (08:35)
[2018-04-08] MEDS: NEURONTIN PO SCH (08:35)
[2018-04-08] MEDS: ASPIRIN EC PO SCH (08:35)
[2018-04-08] MEDS: LOPRESSOR PO SCH ×2 (08:37→16:23)
[2018-04-08] MEDS: EFFEXOR XR PO SCH (08:38)
[2018-04-08] MEDS ORDERED: LOVENOX SUBQ SCH (09:00)
[2018-04-08] MEDS: BASAGLAR SUBQ SCH (10:59)
[2018-04-08] MEDS: VANCOMYCIN 1,900 MG in NS 500 ML IV SCH (11:00)
[2018-04-08] MEDS ORDERED: INSULIN PEN NEEDLES ONE (11:01)
--- NOTE | 2018-04-08 11:45 | PROGRESS NOTE ---
DATE: 04/08/2018 INTERVAL HISTORY: I was told that yesterday he did not tolerate simple nasal cannula, and so he was kept on Venturi mask. In the morning, it was about 45%. He is diuresing at a rather slow rate. SUBJECTIVE: He is denying chest pain or shortness of breath. He is feeling significantly better. Denies nausea, vomiting, abdominal pain. He has not had a bowel movement. We discussed about his clinical condition, and I answered all of his questions. VITALS: Currently vitals show a temperature of 97.6 degrees, pulse off 89, blood pressure 120/74, saturating 94% on 45% 15 L Venturi mask. Input and output suggests negative 500 ml today. LABS: Today suggestive of resolution of leukocytosis, stable hemoglobin, hematocrit and platelet count. ABG suggestive of normal pH, PO2 of 118. Electrolytes suggestive of improving BUN, creatinine. He does have chronic kidney disease stage III, hyperglycemia. MICROBIOLOGY: No new microbiological data. IMAGING: Chest x-ray performed today in the morning suggests slight worsened pulmonary edema plus or minus pneumonia. However, on my evaluation of chest x-ray, it does suggest slight worsening of bilateral pleural effusion. ASSESSMENT AND PLAN: 1. Acute hypoxic respiratory failure due to cardiogenic pulmonary edema related to likely atrial fibrillation with rapid ventricular rate and bilateral pneumonia with suspected alveolar hemorrhage secondary to Eliquis use considering his brownish sputum. Continue BiPAP and Ventimask on nasal cannula cycle as tolerated. Continue intravenous vancomycin and intravenous cefepime and follow up urine strep and legio antigen with procalcitonin. I will increase Lasix frequency to get better output. Continue albuterol/ipratropium nebulization. I will continue to hold Eliquis considering suspected alveolar hemorrhage. 2. Paroxysmal atrial fibrillation currently tachycardic and due to atrial fibrillation. Continue home aspirin. Increase metoprolol frequency. Hold Eliquis. 3. Sepsis and lactic acidosis due to bilateral pneumonia. Antibiotic plan as mentioned above. Sepsis appears to have resolved. 4. History of coronary artery disease and coronary stent 2 years ago. Continue aspirin, statin. I will add amlodipine and lisinopril in the future as tolerated. 5. History of yeo-mwztyij-fpbygryfw diabetes mellitus with hyperglycemia, likely because of steroid use. Continue sliding scale insulin and add glargine. 6. Disposition: I will like to observe patient in ICU for 1 more day to make sure he is tolerating nasal cannula okay. I will also follow up with procalcitonin. My plan is to transfer him to [facility] tomorrow if he continues to do better. TIME SPENT: More than 30 minutes of critical care time was spent in taking care of this patient. All of his questions have been answered. I was not able to reach out to his yesterday. cc: Guillermo Kingston MD MTDD
[2018-04-08] MEDS: MAXIPIME 2 GM in NS 100 ML IV SCH ×2 (11:55→23:30)
[2018-04-08] MEDS: KLOR-CON PO SCH ×2 (11:56→16:23)
[2018-04-08] MEDS: PROTONIX IV SCH (12:00)
--- NOTE | 2018-04-08 14:19 | PULMONOLOGY PROGRESS NOTE ---
DATE: 04/08/2018 SUBJECTIVE: The patient is awake, alert, and conversant. He reports the brown-tinged sputum has resolved, but he does have occasional cloudy sputum which has been collected in a specimen container. OBJECTIVE: Vital Signs: The patient has been afebrile. BP is 116/78, heart rate 91, respiratory rate 15, oxygen saturation 95%. HEENT: Pupils are equal and reactive. Oropharynx is clear. Neck: Supple. Chest: Reveals bilateral crackles. Cardiac exam: S1, S2. Abdomen: Soft without hepatosplenomegaly. Extremities: Without edema. LABS AND X-RAYS: Chest x-ray reveals slight increased density at the right base. Sputum Gram stain reveals a few bacteria. Arterial blood gas reveals pH 7.40,, pCO2 of 40, and PO2 of 118. IMPRESSION: 1. A 72 year old with hemoptysis/brown sputum production with alveolar hemorrhage. 2. Acute hypoxemic respiratory failure. 3. Pleural effusions. 4. Areas of parenchymal consolidation. 5. Chronic obstructive pulmonary disease. 6. Coronary artery disease. The patient's bloody sputum has resolved. His chest x-ray continues to have some infiltrates which may be residual blood or could be pulmonary edema/pneumonia. RECOMMENDATIONS: 1. Hold Eliquis. Continue to hold Eliquis for now. 2. Continue to cycle oxygen and BiPAP as needed. 3. Continue antibiotics pending clearing of x-ray or a negative sputum culture. cc: Sumit An MD
[2018-04-08] MEDS ORDERED: LOPRESSOR PO SCH (15:00)
[2018-04-09] MEDS: DUONEB (A & A) INH SCH ×7 (00:14→23:29)
[2018-04-09] MEDS: LOPRESSOR PO SCH ×3 (00:19→16:49)
[2018-04-09] MEDS: LASIX IV SCH ×4 (05:00→23:42)
[2018-04-09 06:05] LABS: EOS# 0.03 X1000 (0.0-0.7); EOS% 0.3 % (0.0-10.0); HEMATOCRIT 37.8 % (42.0-52.0); HEMOGLOBIN 12.1 g/dL (14.0-18.0); IMM GRAN# 0.06 X1000 (0.0-0.04); IMM GRAN% 0.6 % (0.0-0.5); LYMPH# 0.66 X1000 (1.2-3.4); LYMPH% 6.9 % (20.5-51.1); MCH 28.1 PG (27-31); MCV 87.7 FL (81-99); MONO% 7.3 % (1.7-9.3); MPV 10.7 FL (7.4-10.4); NEUT# 8.12 X1000 (1.4-6.5); NEUT% 84.9 % (42.2-75.2); PLT 296 X1000 (130-400); RBC 4.31 XMIL (4.7-6.1); RDW 16.4 % (11.5-14.5); WBC 9.57 X1000 (4.8-10.8)
[2018-04-09] MEDS: HUMULIN R SUBQ SCH ×5 (06:25→23:57)
[2018-04-09 06:48] LABS: ALBUMIN 3.4 g/dL (3.5-5.0); CALCIUM 8.9 mg/dL (8.8-10.2); CREATININE 1.3 mg/dL (0.7-1.2); POTASSIUM 4.3 mmol/L (3.5-5.1); TOTAL BILIRUBIN 0.44 mg/dL (0.20-1.00); TOTAL PROTEIN 6.8 g/dL (6.3-8.3)
--- NOTE | 2018-04-09 06:53 | Diag Imaging Result Doc PS360 ---
EXAM: CHEST-PORTABLE HISTORY: Dyspnea TECHNIQUE: Portable chest single view COMPARISON: 04/08/2018 FINDINGS: The lungs remain well expanded. There are bilateral infiltrates/pulmonary edema similar to the prior exam. No cardiomegaly. Small right pleural effusion. The overall appearance is similar to the prior exam. IMPRESSION: Stable chest. Electronically signed by Inocente Alvarez 04/09/2018 6:51 AM
[2018-04-09] MEDS: SOLU-MEDROL IV SCH (08:52)
[2018-04-09] MEDS: BASAGLAR SUBQ SCH (08:52)
[2018-04-09] MEDS: ASPIRIN EC PO SCH (08:53)
[2018-04-09] MEDS: NEURONTIN PO SCH (08:53)
[2018-04-09] MEDS: LIPITOR PO SCH (08:53)
[2018-04-09] MEDS: EFFEXOR XR PO SCH (08:53)
[2018-04-09] MEDS: PROTONIX IV SCH ×2 (10:30→13:58)
[2018-04-09] MEDS: VANCOMYCIN 1,900 MG in NS 500 ML IV SCH (10:30)
--- NOTE | 2018-04-09 12:50 | PROGRESS NOTE ---
DATE: 04/09/2018 INTERVAL HISTORY: No acute overnight events. His vitals detected pulse of 90s to 110s. He was intermittently on BiPAP, eventually mask. He was able to make more amount of urine yesterday with increased dose of Lasix. SUBJECTIVE: He is feeling significantly better today. Denies any complaints. His denying any chest pain. His cough has significantly gotten better. PHYSICAL EXAMINATION: Vital signs: Currently temperature 98.6 degrees, pulse 94 per minute, respiratory 17, blood pressure 130/62, saturating 97% on 5 L nasal cannula. General: Does not appear in any acute distress. HEENT: Oral cavity is moist. Lungs: Air entry bilaterally equal. No wheeze or rhonchi. He does have decreased air entry with mild inspiratory crackles bilateral infrascapular region, though. However, it is significantly improved since presentation. Input and output suggests -1 L so far. LABORATORY DATA: Today suggestive of stable hemoglobin, hematocrit, platelet count. His electrolytes suggestive of elevated BUN and creatinine. He does have baseline chronic kidney disease stage 3 though, and he is pretty close to his baseline at the moment. His procalcitonin level was undetectable. His urine Legionella and streptococcal antigen are negative. Chest x-ray performed today suggests stable and a small right-sided pleural effusion. ASSESSMENT AND PLAN: 1. Acute hypoxic respiratory failure due to acute cardiogenic pulmonary edema related to atrial fibrillation with rapid ventricular rate on presentation, and bilateral pneumonia with suspicion of alveolar hemorrhage secondary to Eliquis use considering his brownish sputum. Continue to cycle BiPAP and nasal cannula as tolerated to maintain saturation more than 90%. Continue intravenous vancomycin and intravenous cefepime until final sputum culture results come back. His urine antigen for Streptococcus Legionella and procalcitonin are negative. Once final sputum culture is back, my plan is to discontinue antibiotics. I would appreciate Pulmonology recommendation on that. Continue intravenous Lasix at current frequency for 24 hours and my plan is to decrease the frequency tomorrow. Continue albuterol ipratropium nebulization. Continue to hold Eliquis for alveolar hemorrhage. 2. Paroxysmal atrial fibrillation. Currently in atrial fibrillation, so this is likely chronic atrial fibrillation now. Continue home aspirin and metoprolol at higher dose. Hold Eliquis for now. 3. Sepsis and lactic acidosis because of bilateral pneumonia. Plan as mentioned above. 4. History of coronary artery disease status post stent 2 years ago. Continue aspirin, statin. Hold amlodipine and lisinopril for now. 5. History of rsp-gullwey-utbrsguvg diabetes mellitus with hyperglycemia related to steroid use. Continue glargine and increase sliding scale to medium dose. I will stop steroids in the next 48 hours. 6. Disposition. The patient remains inside the ICU. If he continues to do better on nasal cannula, I would consider transferring him to [facility] unit later during the day or tomorrow. Plan of care was discussed with the patient. I called the patient's , who is a surrogate decision-maker, and informed her about patient's clinical course and answered all of her questions. cc: Guillermo Kingston MD
[2018-04-09] MEDS: MAXIPIME 2 GM in NS 100 ML IV SCH ×2 (13:00→23:42)
[2018-04-09] MEDS ORDERED: BASAGLAR SUBQ ONE (16:32)
--- NOTE | 2018-04-09 20:24 | PULMONOLOGY PROGRESS NOTE ---
DATE: 04/09/2018 SUBJECTIVE: The patient is sitting in a chair. He reports his shortness of breath has diminished. He denies sputum production. OBJECTIVE: Vital Signs: Heart rate 97, blood pressure 137/91, respiratory rate 24, oxygen saturation 95% on nasal cannula. HEENT: Pupils are equal and reactive. Oropharynx is clear. Neck: Supple. Chest: Reveals crackles in both lung bases. Abdomen: Soft and without hepatosplenomegaly. Extremities: Without edema. DIAGNOSTICS: Chest x-ray reveals bilateral infiltrates with some consolidation at the right base. No change. Laboratory reveals no new microbiology data. White blood count 9.57, hemoglobin 12.1, platelet count 296,000. Chemistry: Sodium 136, potassium 4.3, chloride 99, bicarbonate 22, BUN 36, creatinine 1.3. IMPRESSION: 1. A 72-year-old with hemoptysis, while on Eliquis with alveolar hemorrhage. 2. Acute hypoxemic respiratory failure. 3. Pleural effusions with some area of parenchymal consolidation. 4. Chronic obstructive pulmonary disease. 5. Coronary artery disease. DISCUSSION: The patient's radiograph is not significantly changed. He has had significant decrease in symptoms over the last 24 hours. RECOMMENDATIONS: 1. Agree with current Lovenox dosing per Dr. Hernandez. This is low-dose. 2. Continue oxygen and BiPAP as needed for respiratory failure. 3. Continue antibiotics pending clearance of chest x-ray. 4. Overall prognosis is guarded. cc: Sumit An MD
[2018-04-10] MEDS: DUONEB (A & A) INH SCH ×6 (04:15→23:42)
[2018-04-10] MEDS: LASIX IV SCH (05:07)
[2018-04-10] MEDS: HUMULIN R SUBQ SCH ×4 (06:02→20:47)
--- NOTE | 2018-04-10 08:58 | Diag Imaging Result Doc PS360 ---
EXAM: CHEST-PORTABLE - 04/10/2018 HISTORY: Dyspnea TECHNIQUE: Portable chest COMPARISON: 04/09/2018 FINDINGS: Heart size appears within normal limits. There is stable elevation of left hemidiaphragm. There are bilateral infiltrates which appear stable, except for possible mild decrease in infiltrate at right base. There is no substantial pleural effusion or pneumothorax identified. IMPRESSION: Bilateral infiltrates similar to prior, except for possible mild decrease in infiltrate at the right base. Electronically signed by Inderjit Ledesma 04/10/2018 8:56 AM
[2018-04-10] MEDS: ASPIRIN EC PO SCH (09:33)
[2018-04-10] MEDS: EFFEXOR XR PO SCH (09:33)
[2018-04-10] MEDS: NEURONTIN PO SCH (09:33)
[2018-04-10] MEDS: LIPITOR PO SCH (09:33)
[2018-04-10] MEDS: LOPRESSOR PO SCH ×3 (09:33→16:11)
[2018-04-10] MEDS: SOLU-MEDROL IV SCH (09:33)
[2018-04-10] MEDS: BASAGLAR SUBQ SCH (09:34)
--- NOTE | 2018-04-10 11:11 | PROGRESS NOTE ---
DATE: 04/10/2018 INTERVAL HISTORY: No acute overnight events. SUBJECTIVE: Patient was able to come out of bed and sit in the chair. At the time of my evaluation, he is feeling fine. I discussed with him that I was able to talk with his yesterday and had updated her about his medical course. The patient is denying chest pain, shortness of breath. He is denying any more cough with expectoration. He is making good amount of urine. Denies any new complaints. I discussed with him about considering potential transfer to step-down unit later today. OBJECTIVE: Vital Signs: Temperature 98.6 degrees, pulse 120 per minute, blood pressure 114/83, saturating 95% on 5 L nasal cannula. General: Does not appear in any acute distress. Morbidly obese. No pallor, cyanosis, clubbing, or icterus. Lungs: Air entry bilaterally equal. Mild inspiratory crackles, bilateral infrascapular region without any wheeze or rhonchi. Cardiovascular: S1, S2 normal. No murmur, rub, or gallop. Abdomen: Soft, nontender. No lower extremity edema. He does not have any urine catheter. DIAGNOSTIC STUDIES: No CBC or BMP today. His hyperglycemia is better today morning. ASSESSMENT AND PLAN: 1. Acute on chronic hypoxic respiratory failure due to acute cardiogenic pulmonary edema related to atrial fibrillation with rapid ventricular rate on presentation and bilateral pneumonia with suspicion of valvular hemorrhage secondary to Eliquis use, considering his brownish sputum. Continue to cycle BiPAP and nasal cannula as tolerated to maintain saturation more than 90% to 92%. Continue intravenous vancomycin and intravenous cefepime until chest x- ray clears. His infectious workup has been negative so far. Pulmonology on board. Decrease intravenous Lasix frequency. Continue to hold Eliquis for now. 2. History of paroxysmal atrial fibrillation. Continue current dose of metoprolol. I will restart anticoagulation in the future as tolerated. 3. Sepsis and lactic acidosis because of bilateral pneumonia, now resolved. Plan as mentioned above. 4. History of coronary artery disease status post stent 2 years ago. Continue aspirin and statin. Hold amlodipine and lisinopril for now. 5. History of kap-yrczvot-pspxcgzyq diabetes mellitus with steroid-induced hyperglycemia now. Continue glargine and moderate-dose sliding scale insulin. I will adjust dose according to sugar. 6. History of chronic hypoxic respiratory failure on home 5L oxygen because of chronic obstructive pulmonary disease with mild acute exacerbation. Continue albuterol/ ipratropium nebulization. I will start tapering down his steroids. Continue oxygenation. DISPOSITION: The patient is doing significantly better. If he continues to do better, my plan is to transfer him to [facility] later today. Yesterday, I had discussed plan of care with his . All of her questions have been answered. CRITICAL CARE TIME: More than 30 minutes of critical care time was spent in taking of this patient. cc: Guillermo Kingston MD MTDD
[2018-04-10] MEDS: MAXIPIME 2 GM in NS 100 ML IV SCH ×2 (11:52→23:22)
[2018-04-10] MEDS: LOVENOX SUBQ SCH (11:52)
[2018-04-10] MEDS: LASIX PO SCH (11:52)
[2018-04-10] MEDS: PROTONIX IV SCH (11:52)
[2018-04-10] MEDS: VANCOMYCIN 1,900 MG in NS 500 ML IV SCH (13:00)
--- NOTE | 2018-04-10 14:53 | PULMONOLOGY PROGRESS NOTE ---
DATE: 04/10/2018 SUBJECTIVE: The patient reports he is coughing up a little bit of dark sputum per day. His breathing continues to improve. He is sitting in the chair. He is tolerating p.o. intake. OBJECTIVE: Vital Signs: Blood pressure 121/64, respiratory rate 20, heart rate 98, oxygen saturation 95% on 4 L per nasal cannula. HEENT: Pupils are equal and reactive. Oropharynx appears clear. Neck: Supple. Chest: Reveals crackles at the bases. Cardiac exam: S1-S2. Abdomen: Is soft without hepatosplenomegaly. Extremities: Are without edema. LABORATORIES: Chest x-ray reveals slight decrease in infiltrate at the right base. IMPRESSION: 1. A 72-year-old with alveolar hemorrhage while on Eliquis and hemoptysis. 2. Acute hypoxemic respiratory failure. 3. Pleural effusions with parenchymal consolidation. 4. Chronic obstructive pulmonary disease. 5. Coronary artery disease. RECOMMENDATION: 1. Continue low-dose Lovenox dosing per Dr. Hernandez. 2. Continue to wean oxygen as tolerated. 3. Would continue antibiotics given continued improvement in clinical course. 4. From a pulmonary standpoint, he could be transferred to the floor. cc: Sumit An MD
[2018-04-11] MEDS: LOPRESSOR PO SCH ×3 (00:14→20:13)
[2018-04-11] MEDS: DUONEB (A & A) INH SCH ×6 (04:36→23:24)
[2018-04-11 05:53] LABS: AGAP 12; BUN 36 mg/dL (8-22); CALCIUM 8.9 mg/dL (8.8-10.2); CHLORIDE 101 mmol/L (98-107); COSMO 288; CREATININE 1.1 mg/dL (0.7-1.2); ESTIMATED GFR > 60; GLUCOSE 141 mg/dL (70-104); POTASSIUM 3.8 mmol/L (3.5-5.1); SODIUM 139 mmol/L (136-145); TCO2 26 mmol/L (25-35)
[2018-04-11] MEDS: HUMULIN R SUBQ SCH ×4 (06:23→20:14)
--- NOTE | 2018-04-11 07:09 | Diag Imaging Result Doc PS360 ---
EXAM: CHEST-PORTABLE 04/11/2018 HISTORY: Dyspnea TECHNIQUE: AP portable at 0521 COMMENT: The pulmonary edema present on 04/10/2018 has improved slightly. There has otherwise been no significant change. IMPRESSION: Improved pulmonary edema. Electronically signed by Cezar Stanley 04/11/2018 7:07 AM
[2018-04-11] MEDS: EFFEXOR XR PO SCH (08:38)
[2018-04-11] MEDS: NEURONTIN PO SCH (08:38)
[2018-04-11] MEDS: LASIX PO SCH (08:39)
[2018-04-11] MEDS: LOVENOX SUBQ SCH (08:39)
[2018-04-11] MEDS: BASAGLAR SUBQ SCH (08:39)
[2018-04-11] MEDS: ASPIRIN EC PO SCH (08:45)
[2018-04-11] MEDS: LIPITOR PO SCH (08:49)
[2018-04-11] MEDS ORDERED: PREDNISONE PO SCH (09:00)
[2018-04-11] MEDS: MAXIPIME 2 GM in NS 100 ML IV SCH (11:08)
[2018-04-11] MEDS: PROTONIX IV SCH (12:00)
[2018-04-11] MEDS: VANCOMYCIN 1,900 MG in NS 500 ML IV SCH (14:39)
--- NOTE | 2018-04-11 15:00 | PROGRESS NOTE ---
DATE: 04/11/2018 SUBJECTIVE: No acute events overnight. The patient still remains inside the ICU. Likely, there was no bed availability. The patient is feeling fine. Denies any complaints. Denies chest pain, shortness of breath. He is coughing, but is not bringing up any sputum. He has not noticed any blood in the sputum since the last 2 days. We discussed about his improving chest x-ray, improving pneumonia and pulmonary edema. I answered all of his questions. The patient's is at bedside. Her questions have also been answered. PHYSICAL EXAMINATION: Current Vital Signs: Temperature of 96.9 degrees, pulse 99, respiratory rate 20, blood pressure 135/74, saturating 97% on 5 L nasal cannula. General: Does not appear in any acute distress. Resting in chair with her nasal cannula on without any distress. He appears morbidly obese. HEENT: Oral cavity is moist. Lungs: Decreased breath sound appreciation bilaterally because of thick chest wall and likely COPD. No wheeze, rhonchi, or crackles. Cardiovascular: S1, S2 normal. He has had irregularly irregular rhythm. No murmur, rub, or gallop. Abdomen: Soft, nontender. No JVD. Extremities: No lower extremity edema. DIAGNOSTIC DATA: Chest x-ray today suggests improved pulmonary edema. ASSESSMENT AND PLAN: 1. Acute on chronic hypoxic respiratory failure due to acute cardiogenic pulmonary edema related to atrial fibrillation with rapid ventricular response, plus bilateral pneumonia with suspicion alveolar hemorrhage secondary to Eliquis use considering brownish sputum. Currently, his oxygen requirement is his baseline. Continue to cycle bilevel positive airway pressure and nasal cannula to maintain saturation more than 92%. Continue intravenous vancomycin and intravenous cefepime. I will appreciate Pulmonology recommendation about discontinuing these antibiotics today. Continue home Lasix dose. I will consider restarting Eliquis at 2.5 mg twice daily dose after pulmonology discussion. 2. History of paroxysmal atrial fibrillation. Change metoprolol dosing to assure better compliance to 50 mg twice daily. My plan is to resume low-dose Eliquis at 2.5 mg twice daily starting tomorrow, after discussion with pulmonology. 3. Lactic acidosis and sepsis because of bilateral pneumonia, now resolved. His cultures have been negative. 4. History of coronary artery disease, status post stent 2 years ago. Continue aspirin. Holding amlodipine and lisinopril considering his soft blood pressures. 5. History of noninsulin-dependent diabetes mellitus with steroid-induced hyperglycemia. Also hyperglycemia related to dietary noncompliance while inside intensive care unit. Continue current glargine, moderate dose sliding scale insulin. The patient was advised to only a diabetic diet. 6. History of chronic hypoxic respiratory failure because of chronic obstructive pulmonary disease, on home 5 liters of oxygen with mild acute exacerbation of chronic obstructive pulmonary disease. Continue steroid tapering. 7. Disposition. The patient will be transferred to medical floor when bed is available. Plan of care was discussed with him. All of his questions have been answered. cc: Guillermo Kingston MD MTDD
[2018-04-11] MEDS: ELIQUIS PO SCH (20:14)
[2018-04-12] MEDS: DUONEB (A & A) INH SCH ×6 (04:57→23:03)
[2018-04-12 05:34] LABS: BASO# 0.01 X1000 (0.0-0.2); BASO% 0.1 % (0.0-0.8); EOS# 0.48 X1000 (0.0-0.7); HEMATOCRIT 38.1 % (42.0-52.0); HEMOGLOBIN 12.2 g/dL (14.0-18.0); IMM GRAN% 0.8 % (0.0-0.5); LYMPH# 1.94 X1000 (1.2-3.4); LYMPH% 16.3 % (20.5-51.1); MCH 27.6 PG (27-31); MCV 86.2 FL (81-99); MONO% 5.9 % (1.7-9.3); MPV 10.6 FL (7.4-10.4); NEUT# 8.69 X1000 (1.4-6.5); NEUT% 72.9 % (42.2-75.2); PLT 326 X1000 (130-400); RBC 4.42 XMIL (4.7-6.1); RDW 15.9 % (11.5-14.5); WBC 11.92 X1000 (4.8-10.8)
[2018-04-12 05:54] LABS: AGAP 12; BUN 34 mg/dL (8-22); CALCIUM 8.7 mg/dL (8.8-10.2); CHLORIDE 104 mmol/L (98-107); COSMO 290; CREATININE 1.1 mg/dL (0.7-1.2); ESTIMATED GFR > 60; GLUCOSE 125 mg/dL (70-104); POTASSIUM 4.1 mmol/L (3.5-5.1); SODIUM 141 mmol/L (136-145); TCO2 25 mmol/L (25-35)
[2018-04-12] MEDS: HUMULIN R SUBQ SCH ×4 (06:14→20:32)
--- NOTE | 2018-04-12 07:46 | Diag Imaging Result Doc PS360 ---
EXAM: CHEST-PORTABLE INDICATION: Dyspnea TECHNIQUE: One view COMPARISON: 04/11/2018 FINDINGS: Interstitial edema with a basilar predominance is approximately stable. No new consolidation is identified. Cardiac silhouette is stable. IMPRESSION: Stable chest. Electronically signed by Jarod Hodges 04/12/2018 7:43 AM
[2018-04-12] MEDS: LOPRESSOR PO SCH ×2 (08:15→20:33)
[2018-04-12] MEDS: LASIX PO SCH (08:15)
[2018-04-12] MEDS: EFFEXOR XR PO SCH (08:15)
[2018-04-12] MEDS: LIPITOR PO SCH (08:15)
[2018-04-12] MEDS: NEURONTIN PO SCH (08:15)
[2018-04-12] MEDS: ELIQUIS PO SCH ×2 (08:15→20:32)
[2018-04-12] MEDS: ASPIRIN EC PO SCH (08:15)
[2018-04-12] MEDS: BASAGLAR SUBQ SCH (08:16)
--- NOTE | 2018-04-12 08:20 | PULMONOLOGY PROGRESS NOTE ---
DATE: 04/11/2018 SUBJECTIVE: The patient reports he has done well overnight. He is sitting in a chair. He reports his shortness of breath has resolved. Bloody sputum has resolved. He is without complaints. He reports he was on oxygen at home before being admitted for this hospitalization. OBJECTIVE: Vital Signs: Blood pressure 120/64, heart rate 85, respiratory rate 14, oxygen saturation 95% on nasal cannula at 5 L. HEENT: Pupils are equal and reactive. Oropharynx is clear. Neck: Supple. Chest: Good air entry bilaterally with faint crackles in the bases. Cardiac: S1, S2. ABDOMEN: Soft and without hepatosplenomegaly. Extremities: Without significant edema. LABORATORY DATA: Chest x-ray reveals continued improvement in the lung bases. No new culture data. Sodium 139, potassium 3.8, chloride 101, bicarbonate 26, BUN 36, creatinine 1.1, glucose 141. IMPRESSION: A 72-year-old with: 1. Alveolar hemorrhage while on Eliquis, with resulting hemoptysis. 2. Acute hypoxemic respiratory failure. 3. Pleural effusions with parenchymal consolidation. 4. Chronic obstructive pulmonary disease. 5. Coronary artery disease. RECOMMENDATIONS: 1. Consider transfer to the floor. I believe he can be transferred to a medical floor with telemetry and has been stable, and does not necessarily need the CIC unit. 2. Continue low-dose Lovenox. Consider transitioning back to low-dose Eliquis in the next 24 to 48 hours. 3. Continue antibiotics for 2 days and then discontinue. 4. Wean oxygen as tolerated. cc: Sumit An MD
[2018-04-12] MEDS ORDERED: PREDNISONE PO SCH (09:00)
[2018-04-12] MEDS: MAXIPIME 2 GM in NS 100 ML IV SCH ×3 (11:30)
[2018-04-12] MEDS: PROTONIX IV SCH (11:30)
[2018-04-12] MEDS: VANCOMYCIN 1,900 MG in NS 500 ML IV SCH (12:13)
--- NOTE | 2018-04-12 12:58 | PROGRESS NOTE ---
DATE: 04/12/2018 INTERVAL HISTORY: No acute overnight events. The patient has been tolerating low-dose Eliquis without any trouble. SUBJECTIVE: Denies chest pain, shortness of breath, any cough or hemoptysis, nausea/vomiting, abdominal pain. He is feeling wonderful. I explained to him about still no bed availability on routine medical floor and antibiotic plan as per Pulmonology. VITALS: Temperature of 97.2, pulse 77, respiratory rate 20, blood pressure 114/ 67, saturating 95% on 4 L nasal cannula. PHYSICAL EXAMINATION: General: Appears morbidly obese, not in any acute distress. HEENT: Oral cavity is moist. Lungs: Inspiratory crackles, bilateral infrascapular region. No wheeze, rhonchi. Otherwise, bilateral breath sounds appear diminished because of chronic obstructive pulmonary disease. Cardiovascular: S1, S2 normal, irregularly irregular. No murmur, rub, or gallop. Abdomen: Soft, nontender. Neck: No jugular venous distention. Extremities: No lower extremity edema. LABORATORY DATA: Today suggestive of hemoglobin of 12.2, WBC of 11.9 with normal platelet count. Normal BMP with mild elevation of BUN, which is his baseline. Hyperglycemia. IMAGING: Chest x-ray performed today suggests interstitial edema with basilar prominence which is approximately stable. ASSESSMENT AND PLAN: 1. Acute on chronic hypoxic respiratory failure due to acute cardiogenic pulmonary edema related to atrial fibrillation with rapid ventricular response plus bilateral pneumonia with alveolar hemorrhage secondary to Eliquis use considering his brownish sputum. Continue oxygenation, which is his baseline, and try to wean down to maintain saturation more than 92%. Continue intravenous vancomycin, intravenous cefepime until April 13. Continue his home dose of p.o. Lasix and low dose of Eliquis. He should discuss with his heart doctor about increasing the Eliquis dose as tolerated outpatient. 2. History of paroxysmal atrial fibrillation. Continue metoprolol 100 mg b.i.d. , which he has been tolerating well, and Eliquis 2.5 mg b.i.d. 3. Sepsis and lactic acidosis because of bilateral pneumonia, resolved. His cultures have been negative. 4. History of coronary artery disease status post percutaneous coronary intervention (PCI) stent 2 years ago. Continue aspirin. Holding amlodipine and lisinopril considering his soft blood pressure. 5. History of lri-zrcjhpi-ommgfgrzz diabetes mellitus with steroid-induced hyperglycemia. He is on a steroid taper. Continue glargine and sliding scale insulin. He also has been having intermittent large meals brought in by the family. I discussed with him about high blood sugar findings and plan and compliance, and he agreed. 6. Acute chronic obstructive pulmonary disease (COPD) exacerbation because of bilateral pneumonia. Continue steroid taper and antibiotics. He is currently on his home oxygen. DISPOSITION: The patient has transferred to routine medical floor since more than 48 hours pending bed availability. Plan is to discharge him home likely tomorrow. I answered all of his questions. cc: Guillermo Kingston MD MTDD
--- NOTE | 2018-04-12 22:41 | PULMONOLOGY PROGRESS NOTE ---
DATE: 04/12/2018 SUBJECTIVE: The patient is awake, alert and conversant. He is without specific complaints. OBJECTIVE: BP 131/94, heart rate 78, respiratory rate 19, oxygen saturation 97%. He has been afebrile. HEENT: Pupils are equal and reactive. Oropharynx is clear. Neck is supple. Chest reveals minimal crackles in the lung bases. Cardiac exam: S1, S2. Abdomen is soft and without hepatosplenomegaly. Extremities are without edema. DIAGNOSTIC DATA: Chest x-ray reveals slight increased markings in the lung bases, but the lung edges are clipped. No change from yesterday. LABORATORY DATA: White blood count 11.9, hemoglobin 12.2, platelet count 326,000. Sodium 141, potassium 4.1, chloride 104, bicarbonate 25, BUN 34, creatinine 1.1. IMPRESSION: 1. A 72-year-old with alveolar hemorrhage, on full-dose Eliquis. His Eliquis was discontinued and his hemoptysis and chest x-ray have significantly improved. He has been restarted on lower dose Eliquis. 2. Acute hypoxemic respiratory failure, with improvement. 3. Chronic obstructive pulmonary disease. 4. Coronary artery disease. RECOMMENDATIONS: 1. Agree with current treatment regimen. 2. Agree with transfer to the floor. 3. Agree with discharge home soon if no bed is available. I do not believe he will require additional antibiotics. cc: Sumit An MD
[2018-04-13] MEDS: MAXIPIME 2 GM in NS 100 ML IV SCH (00:26)
[2018-04-13] MEDS: DUONEB (A & A) INH SCH ×2 (03:01→08:26)
[2018-04-13] MEDS: HUMULIN R SUBQ SCH (06:04)
[2018-04-13] MEDS ORDERED: PREDNISONE PO SCH (09:00)
[2018-04-13] MEDS: BASAGLAR SUBQ SCH (09:26)
[2018-04-13] MEDS: NEURONTIN PO SCH (09:27)
[2018-04-13] MEDS: LIPITOR PO SCH (09:27)
[2018-04-13] MEDS: ELIQUIS PO SCH (09:27)
[2018-04-13] MEDS: EFFEXOR XR PO SCH (09:27)
[2018-04-13] MEDS: LOPRESSOR PO SCH (09:28)
[2018-04-13] MEDS: ASPIRIN EC PO SCH (09:28)
[2018-04-13] MEDS ORDERED: INSULIN PEN NEEDLES ONE (09:28)
[2018-04-13] MEDS: LASIX PO SCH (09:28)
[2018-04-13 10:09] VITALS: BP 104/58
--- NOTE | 2018-04-13 16:08 | DISCHARGE SUMMARY ---
ADMISSION DATE: 04/06/2018 DISCHARGE DATE: 04/13/2018 DISCHARGE DIAGNOSES: 1. Acute on chronic hypoxic respiratory failure. 2. Acute cardiogenic pulmonary edema. 3. Atrial fibrillation with rapid ventricular rate. 4. Bilateral pneumonia. 5. Alveolar hemorrhage acute. 6. Sepsis with lactic acidosis because of unspecified organism. 7. Hyperglycemia in the setting of intravenous steroid use. 8. Acute chronic obstructive pulmonary disease exacerbation requiring steroid. OTHER DIAGNOSES: 1. History of paroxysmal atrial fibrillation on Eliquis requiring cardioversion in February 2018. 2. Questionable patent foramen ovale on echocardiogram February 2018. 3. History of chronic obstructive pulmonary disease and chronic hypoxic respiratory failure on home 4 to 5 L of oxygen continuous. 4. History of coronary artery disease with stent in RCA. 5. History of ivy-uxsjtaa-yevgyumag diabetes mellitus. 6. Suspected history of obstructive sleep apnea, pending outpatient sleep study. 7. History of hyperlipidemia. 8. History of chronic neuropathic pain. CONSULTATIONS DURING HOSPITALIZATION: Pulmonology, Dr. An. DISCHARGE MEDICATIONS: 1. Atorvastatin 80 mg daily. 2. Lasix 40 mg daily. 3. Gabapentin 300 mg daily. 4. Metformin 1000 mg daily. Please adjust dose according to blood sugar response. 5. Multivitamin with minerals 1 tablet daily. 6. Venlafaxine 150 mg daily. 7. Apixaban 2.5 mg b.i.d. 60 tablets were prescribed. His dose was decreased from 5 mg b.i.d. to 2.5 mg b.i.d. considering his alveolar hemorrhage. 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 8. Aspirin 81 mg daily. 9. Fluticasone salmeterol 250/50 1 puff inhaled b.i.d. 10. Metoprolol 100 mg b.i.d. 11. Prednisone 30 mg on day one, 20 mg on day two, 10 mg on day 3 and then stop. VITALS AT TIME OF DISCHARGE: Temperature of 97.4 degrees, pulse 82 per minute, respiratory 20 per minute, blood pressure 104/58, saturating 97% on 4 L nasal cannula. PHYSICAL EXAMINATION: General: The patient appears morbidly obese, not in any acute distress. Oral cavity is moist. He is on nasal cannula and antibiotic. Respiratory: No wheeze or rhonchi. Mild inspiratory crackles bilateral infrascapular region which has significantly improved since presentation. He does have a lower intensity of his breath sounds in general because of history of COPD and thick chest wall. Cardiovascular: S1, S2 normal. Irregularly irregular. No murmur, rub, or gallop. Abdomen: Soft, obese, nontender. No jugular venous distention. No lower extremity edema. LABORATORY DATA: Significant labs during hospital admission: His WBC was 11.9, hemoglobin of 12.2, platelet of 326,000. His eosinophil count was 0.1%. He did not have electrolyte abnormalities except BUN of 34, creatinine of 1.1. His blood sugars were 103 at the time of discharge. Microbiology during hospital admission: Sputum, Gram stain and culture did not have any growth to date. Blood cultures were negative. Influenza screen was negative. IMAGING DURING HOSPITALIZATION: Pulmonary arteriogram on 04/06/2018 had detected no evidence of pulmonary emboli. There was bilateral pulmonary edema, pleural effusions, patchy pneumonia and/or atelectasis. However, considering his brownish sputum, it was thought it could be related to alveolar hemorrhage. Chest x-ray on April 12 had detected a significant decrease in alveolar interstitial edema without any new consolidation. HOSPITAL COURSE SUMMARY: Mr. Forde is a 72-year-old man who presented with complaints of dyspnea off about 48 hours' duration which was present at rest as well as getting worse on exertion. He also complained of cough which was increasing in intensity with sputum production which was brownish in color. On admission, he was found to be in acute hypoxic respiratory failure, where his PO2 was 45 on 40% FiO2. He was admitted to ICU for further management. HOSPITAL COURSE PROBLEM TIWARI: 1. Acute on chronic hypoxic respiratory failure thought to be secondary to acute cardiogenic pulmonary edema related to atrial fibrillation with RVR and bilateral pneumonia and suspected alveolar hemorrhage. He was treated with BiPAP and nasal cannula cycle and intravenous Lasix. His Eliquis was initially held and he was started on lower than his routine dose of Eliquis for atrial fibrillation. He was also given intravenous vancomycin and intravenous cefepime for about 7 days duration. After intravenous antibiotics, intravenous Lasix, intravenous steroids his respiratory status has improved and he was stable at about 4 to 5 L of nasal cannula oxygen. He was able to perform physical activity without getting short of breath. At the time of discharge. He was given a steroid taper. Antibiotics were stopped and low dose of Eliquis. Also prescribed Advair Diskus. He was hemodynamically stable to be discharged. 1. History of paroxysmal atrial fibrillation. While inside the hospital, he did develop rapid ventricular rate for which his metoprolol dose was increased and he was stable on a higher dose. 2. Sepsis and lactic acidosis had resolved at the time of discharge. 3. He was continued on aspirin for his history of COPD. His amlodipine and lisinopril were held as he was on high dose of metoprolol and his blood pressure was well controlled. 4. Hyperglycemia due to steroid use was managed with Lantus and sliding scale insulin. He was advised to check his sugars and follow up with his regular doctor to discuss about increasing diabetes regimen at the time of discharge. 5. Acute COPD exacerbation during hospital admission was treated with intravenous steroids and he was stable to be discharged on steroid taper. More than 30 minutes were spent in discharging the patient. All of his questions have been answered. cc: Guillermo Kingston MD
[2018-04-14] MEDS ORDERED: PREDNISONE PO SCH (09:00)
== END 2018-04-13 10:37 | disposition home or self-care (01) | DRG 871 ==
LOC: ED 08:25 → ICU 11:25 → SUATTDRO 11:25
PROVIDERS: ATTEND Internal Medicine
CPT/HCPCS: 71010; 71045; 71275; 80048; 80053; 80202; 81001; 82550; 82805; 82948; 83036; 83605; 83735; 83880; 84145; 84484; 85025; 85379; 85610; 85730; 87040; 87070; 87205; 87275; 87276; 87449; 87804; 87899; 93005; 93010; 94640; 94660; 94761; 94762; 96361; 96365; 96368; 96375; 99285; A9270; C9113; J0692; J1650; J1940; J1956; J2060; J2270; J2405; J2543; J2930; J3370; J7030; J7040; J7050; J7506; J7512; Q9967; S0164; XXXXX

== ENCOUNTER 2018-10-24 10:27 | Inpatient (IN) ==
--- NOTE | 2018-10-24 10:39 | PROVIDER DOCUMENTATION ---
HPI-General Adult - General Chief Complaint: Shortness of Breath Stated Complaint: EDEMA,SOB,CHF Time Seen by Provider: 10/24/18 10:34 Source: patient, family Allergies/Adverse Reactions: Patient Allergies Allergy/AdvReac Type Severity Reaction Status Date / Time No Known Allergies Allergy Verified 10/24/18 10:56 Home Medications: Home Medication List Medication Instructions Recorded Confirmed Last Taken Type Atorvastatin Calcium 80 mg PO DAILY 11/28/17 10/24/18 10/23/18 History Gabapentin 300 mg PO TID 11/28/17 10/24/18 10/24/18 History Multivit with Iron,Minerals 1 tab PO DAILY 11/28/17 10/24/18 10/24/18 History [Spectravite Senior] Venlafaxine HCl [Venlafaxine HCl 150 mg PO DAILY 11/28/17 10/24/18 10/24/18 History ER] Furosemide [Lasix] 40 mg PO BID 02/22/18 10/24/18 10/24/18 History Aspirin EC 81 mg PO DAILY #30 tab 02/24/18 10/24/18 10/24/18 Rx Fluticasone/Salmet 250/50 INH 1 puff INH RTBID #1 inhaler 04/13/18 10/24/18 10/24/18 Rx [Advair 250/50 Diskus] Metoprolol [Lopressor] 100 mg PO BID #60 tab 04/13/18 10/24/18 10/24/18 Rx Insulin Humulin 70/30 [Humulin 40 unit SUBQ QHS 04/26/18 10/24/18 10/23/18 H istory 70/30] Insulin Humulin 70/30 [Humulin 60 unit SUBQ QAM 04/26/18 10/24/18 10/24/18 His tory 70/30] Amlodipine [Norvasc] 1 tab PO DAILY 10/24/18 10/24/18 10/24/18 History Apixaban [Eliquis] 1 tab PO BID 10/24/18 10/24/18 10/24/18 History Melatonin 2 tab PO QHS 10/24/18 10/24/18 10/23/18 History Zolpidem [Ambien] 1 tab PO QHS 10/24/18 10/24/18 10/23/18 History Review of Systems - Adult - REVIEW OF SYSTEMS - ADULT Constitutional: denies: fever Eyes: denies: eye pain Ears, Nose, Mouth & Throat: denies: throat pain Cardiovascular: reports: edema. denies: chest pain Respiratory: reports: cough, dyspnea on exertion, hemoptysis, shortness of breath Gastrointestinal: reports: other (abdominal swelling) Genitourinary: denies: dysuria Musculoskeletal: reports: back pain Integumentary: reports: rash (bilateral lower extremity rash) Hematologic/Lymphatic: reports: other Past History - Adult - PAST MEDICAL HISTORY-ADULT Review of Records: reports: Old Records Reviewed Major Childhood Illnesses: reports: denies history Cardiovascular: reports: A-Fib, CAD, CHF, HTN, hyperlipidemia Respiratory: reports: COPD Gastrointestinal: reports: denies history Obstetrical/Gynecological: reports: denies history Genitourinary: reports: denies history Musculoskeletal: reports: denies history Neurological: reports: denies history Psychiatric: reports: anxiety Endocrine/Immune: reports: denies history Other Conditions: reports: denies history - PRIOR SURGERIES/PROCEDURES Surgical/Procedure History: reports: reviewed, not pertinent - IMMUNIZATION STATUS Childhood Immunizations: See Nurse Assessment Flu Vaccine: See Nurse Assessment - FAMILY HISTORY Family History: reviewed, not pertinent Physical Exam-General - CONSTITUTIONAL General Appearance: alert, mild distress - EYES Eyes: negative: scleral icterus - HEAD, EARS, NOSE, MOUTH & THROAT HENMT: moist mucous membranes - NECK Neck: non-tender, normal inspection - RESPIRATORY Respiratory: crackles - CARDIOVASCULAR Cardiovascular: regular rate, rhythm, JVD, other (2+ LE edema) - GASTROINTESTINAL (ABDOMEN) Abdominal Exam: distended, other (mild tenderness no rebound) - NEUROLOGIC Neurologic: grossly normal - PSYCHIATRIC Psych/Mental Status: normal mood/affect Progress - PLAN OF CARE/RESULTS Progress/Plan/Lab Results: Vital Signs - 8 hr 10/24/18 10:31 Temperature 97.5 F L Pulse Rate 73 Respiratory Rate 18 Blood Pressure 148/75 O2 Sat by Pulse Oximetry 84 L Orders Category Date Time Status CHEST-1 VIEW [RAD] Stat Exams 10/24/18 10:34 Ordered CBC WITH ELECTRONIC DIFF [HEME] Stat Lab 10/24/18 10:34 Uncollected Chem22 [COMPREHENSIVE METABOLIC PANEL] [CHEM] Stat Lab 10/24/18 10:34 Uncollected PRO B-NATRIURETIC PEPTIDE Stat Lab 10/24/18 10:34 Uncollected Result Diagrams: 10/24/18 11:19 10/24/18 11:19 Departure - Departure Date of Disposition Decision: 10/24/18 Time of Disposition Decision: 13:59 DIAGNOSIS: Acute respiratory failure with hypoxemia, Acute kidney injury Acute exacerbation of congestive heart failure Qualifiers: Heart failure type: unspecified Qualified Code(s): I50.9 - Heart failure, unspecified Disposition: ADMITTED INPATIENT 09 Certified Medical Emergency: Emergent Condition: Good Referrals and Follow-Ups: None,PCP [NON-STAFF PROVIDER] - - Critical Care Note This patient required my direct & personal management of CC.: No Attestation - Physician/ PEREZ Attestation Patient care was provided by Advanced Practice Provider:: No The physician spent face to face time with patient:: Yes Advanced Practice Provider documentation review:: Supervising physician onsite and consulted in the evaluation and care of this patient. The physician did have a face to face encounter with the patient.
--- NOTE | 2018-10-24 11:04 | Diag Imaging Result Doc PS360 ---
CHEST-1 VIEW - 10/24/2018 INDICATION: Shortness of breath COMPARISON: 06/27/2018 FINDINGS: Lung volumes are much lower, now severely low. There is cardiomegaly. There is accentuation of the diffuse bilateral interstitial infiltrates compatible with pulmonary edema. No large pleural effusion. IMPRESSION: Severely low lung volumes. Cardiomegaly and interstitial pulmonary edema. Electronically signed by Dusty Pedraza 10/24/2018 11:01 AM
[2018-10-24 11:38] LABS: BASO# 0.03 X1000 (0.0-0.2); BASO% 0.3 % (0.0-0.8); EOS# 0.23 X1000 (0.0-0.7); EOS% 2.6 % (0.0-10.0); HEMATOCRIT 34.6 % (42.0-52.0); HEMOGLOBIN 10.6 g/dL (14.0-18.0); IMM GRAN# 0.05 X1000 (0.0-0.04); IMM GRAN% 0.6 % (0.0-0.5); LYMPH% 13.5 % (20.5-51.1); MCH 25.9 PG (27-31); MCHC 30.6 g/dL (33-37); MCV 84.6 FL (81-99); MONO# 0.65 X1000 (0.11-0.59); MONO% 7.3 % (1.7-9.3); MPV 10.8 FL (7.4-10.4); NEUT# 6.74 X1000 (1.4-6.5); NEUT% 75.7 % (42.2-75.2); PLT 239 X1000 (130-400); RBC 4.09 XMIL (4.7-6.1); RDW 18.7 % (11.5-14.5)
[2018-10-24 11:55] LABS: AGAP 13; ALB/GLOB RATIO 1.1; ALBUMIN 3.4 g/dL (3.5-5.0); ALKALINE PHOSPHATASE 150 U/L (32-122); BUN 20 mg/dL (8-22); CALCIUM 8.6 mg/dL (8.8-10.2); CHLORIDE 100 mmol/L (98-107); COSMO 285; CREATININE 1.1 mg/dL (0.7-1.2); ESTIMATED GFR > 60; GLUCOSE 257 mg/dL (70-104); GOT 19 U/L (10-34); GPT 14 U/L (10-44); POTASSIUM 4.5 mmol/L (3.5-5.1); SODIUM 137 mmol/L (136-145); TCO2 24 mmol/L (25-35); TOTAL BILIRUBIN 0.58 mg/dL (0.20-1.00); TOTAL PROTEIN 6.6 g/dL (6.3-8.3)
[2018-10-24] MEDS ORDERED: LASIX IV ONE (11:58)
[2018-10-24 12:05] LABS: ALLEN TEST YES; BE 2.7 mmoll (-3.0-3.0); BLOOD TYPE ARTERIAL; METHB 0.8 % (0.0-1.5); MODALITY VENTIMASK; O2(CT) 14.3 mL/dL (15.0-23.0); O2HB 94.6 % (95.0-99.0); PCO2(98.6) 34 mmHg (35-45); PO2(98.6) 86 mmHg (60-100); SAMPLE BLOOD; SAO2 98.2 % (95.0-100.0); THB 10.7 g/dL (11.5-17.4); pH(98.6) 7.49 (7.35-7.45)
--- NOTE | 2018-10-24 12:39 | EKG Report ---
Test Performed on : 10/24/2018 10:39:13 AM Test Reason : SOB/CHF Blood Pressure : / mmHG Vent. Rate : 072 BPM Atrial Rate : 072 BPM P-R Int : 176 ms QRS Dur : 144 ms QT Int : 422 ms P-R-T Axes : 000 109 -29 degrees QTc Int : 462 ms Normal sinus rhythm. Right bundle branch block Abnormal ECG When compared with ECG of 27-APR-2018 06:34, Sinus rhythm. has replaced Ectopic atrial rhythm. Vent. rate has decreased BY 37 BPM Nonspecific T wave abnormality, worse in Inferior leads Unconfirmed Result
[2018-10-24] MEDS ORDERED: ZOFRAN IV PRN (15:03)
[2018-10-24] MEDS ORDERED: TYLENOL PO PRN (15:03)
[2018-10-24] MEDS ORDERED: ATROVENT NEB INH SCH ×2 (15:15→15:30)
[2018-10-24] MEDS: DUONEB (A & A) INH SCH ×2 (15:33→22:07)
[2018-10-24] MEDS: HUMULIN R SUBQ SCH ×2 (16:00→21:30)
[2018-10-24] MEDS ORDERED: HUMULIN R SUBQ SCH (16:07)
[2018-10-24] MEDS: ASPIRIN PO SCH (16:36)
[2018-10-24] MEDS: NEURONTIN PO SCH (16:36)
[2018-10-24] MEDS: LASIX IV SCH (17:59)
--- NOTE | 2018-10-24 19:38 | HISTORY AND PHYSICAL ---
CHIEF COMPLAINT: Shortness of breath on exertion. HISTORY OF PRESENT ILLNESS: Mr. Forde is a 72-year-old man with past medical history of congestive heart failure with preserved ejection fraction of 60%, paroxysmal atrial fibrillation, insulin-dependent diabetes mellitus, COPD and chronic hypoxic respiratory failure on home 4 to 5 L of oxygen, coronary artery disease requiring RCA stent in 2017, history of pulmonary hemorrhage, who came in with chief complaints of dyspnea on exertion. At baseline, the patient lives by himself, is independent of activities of daily living; however, has to use oxygen around the clock, he sees a lockstitch hemmer in [facility] and he sees a coroner transport technician in [place]. He has been taking his diuretics, Lasix 40 mg orally b.i.d. as prescribed; however, since last 4 to 5 days, he started experiencing shortness of breath since last 4 to 5 days. Routinely, he is able to move inside his house without any trouble; however, since last 3 to 4 days, he started experiencing orthopnea as well as dyspnea on exertion, even after coming out of bed and going to the bathroom so he decided to come to the hospital. In the emergency room, he was found to be hypoxic, requiring 50% Ventimask, and chest x-ray was suggestive of acute pulmonary edema. He was given Lasix, and hospitalist team was consulted for further management. At the time of my evaluation, patient has already started feeling better after a dose of Lasix, and he is making urine. He denies any chest pain, palpitation. He is coughing, bringing up pinkish sputum but has not noticed any adwoa blood in it. He denies any fevers, chills, nausea, vomiting. He denies any abdominal pain, burning urination or having constipation or diarrhea. REVIEW OF SYSTEMS: Positive for pinkish expectoration and cough. Negative for headache. Negative for difficulty with vision. Negative for chest pain or palpitation. Negative for anxiety or depression. PAST MEDICAL HISTORY: 1. Paroxysmal atrial fibrillation requiring direct current cardioversion in February 2018. 2. Questionable PFO on echocardiogram. 3. COPD and chronic hypoxic respiratory failure on home 4 to 5 L nasal cannula oxygen. 4. Coronary artery disease requiring RCA stent in 2017. 5. Insulin-dependent diabetes mellitus type 2. PAST SURGICAL HISTORY: 1. Bilateral knee arthroplasty. 2. Appendectomy. 3. Coronary stenting. SOCIAL HISTORY: Nicotine dependence with about 1 pack a day smoking for many years, which he quit about 30 years ago. No alcohol or illicit drug use. He is retired from [employer]. FAMILY HISTORY: Noncontributory. ALLERGIES: No known drug allergies. HOME MEDICATIONS: The reconciliation is pending. According to previous discharge summary, he was on atorvastatin 80 mg daily, gabapentin 300 mg once a day, Effexor 150 mg daily, multivitamin 1 tablet daily, Lasix 40 mg b.i.d., aspirin 81 mg daily, metoprolol 100 mg succinate extended release daily, apixaban 5 mg b.i.d., Advair Diskus 1 puff inhaled b.i.d., Humulin 70/30, 60 units in the morning time, 40 units at nighttime. VITALS: At the time of my evaluation, temperature of 97.5 degrees, pulse 72, respiratory rate 21, blood pressure 150/73. He is saturating 99% on 50% Ventimask. On admission, his SpO2 was 89%. PHYSICAL EXAMINATION: GENERAL: Does not appear in any acute distress. No pallor, cyanosis, clubbing, or icterus. HEENT: Oral cavity is dry. NECK: No cervical lymphadenopathy. LUNGS: Decreased air entry with inspiratory crackles bilateral infrascapular region. No wheeze or rhonchi. CARDIAC: S1, S2 normal. S3 gallop is present. No murmur or rub. ABDOMEN: Distended with ascites and dullness to percussion. Positive hepatojugular reflex. No hepatosplenomegaly. EXTREMITIES: Bilateral lower extremity edema. SKIN: Has normal turgor. PSYCHIATRIC: He does not appear to have anxiety or depression. He is engaging in conversation meaningfully. NEUROLOGICAL: He is alert and oriented x3. He is able to raise both upper and lower extremities above ground level. LABORATORY DATA: Has normocytic anemia with hemoglobin of 10.6, platelets of 239,000. ABG suggestive of respiratory alkalosis with pH of 7.49 on 50% Ventimask. He has normal kidney function with BUN of 20, creatinine of 1.1, glucose is 257. His troponin was negative, and it was less than 0.010. His proBNP was elevated to 1400 and his lowest proBNP so far has been 500. SIGNIFICANT IMAGING DURING HOSPITAL ADMISSION: His chest x-ray had severely low lung volumes, cardiomegaly, interstitial pulmonary edema. EKG had normal sinus rhythm, right bundle branch block, which is old for him. ASSESSMENT: 1. Acute on chronic hypoxic respiratory failure due to acute pulmonary edema due to acute diastolic congestive heart failure exacerbation due to inadequate Lasix dosing. 2. History of coronary artery disease. 3. Insulin-dependent diabetes mellitus type 2. 4. Chronic hypoxic respiratory failure. 5. History of pulmonary hemorrhage; however, currently pink frothy sputum is likely because of pulmonary edema. 6. History of paroxysmal atrial fibrillation on Eliquis. 7. Essential hypertension and hyperlipidemia. 8. History of chronic obstructive pulmonary disease on home oxygen. PLAN: I will start patient on intravenous diuresis. I will resume his home medications for coronary heart disease including aspirin, atorvastatin, beta henrique, as well as Eliquis for atrial fibrillation. I will also resume his home dose of insulin. I will monitor patient in PBC unit, also give him breathing treatment. Plan of care discussed with him. All of his questions were answered. cc: Guillermo Kingston MD
[2018-10-24] MEDS ORDERED: ELIQUIS PO SCH (21:00)
[2018-10-24] MEDS ORDERED: LOPRESSOR PO SCH (21:00)
[2018-10-24] MEDS: LIPITOR PO SCH (21:03)
[2018-10-24] MEDS: HUMULIN 70/30 SUBQ SCH (21:03)
[2018-10-24] MEDS: ELIQUIS PO SCH (21:03)
[2018-10-24] MEDS: AMBIEN PO SCH (21:03)
[2018-10-24] MEDS: MELATONIN PO SCH (21:04)
[2018-10-24] MEDS ORDERED: INSULIN PEN NEEDLES ONE (21:08)
[2018-10-24] MEDS: PULMICORT INH SCH (22:08)
[2018-10-25] MEDS: DUONEB (A & A) INH SCH ×4 (04:19→22:38)
[2018-10-25] MEDS: LASIX IV SCH ×5 (04:58→21:16)
[2018-10-25 05:49] LABS: INR 1.4; PROTIME 17.4 Seconds (11.0-16.0); PTT 42.2 Seconds (22.3-41.8)
[2018-10-25 05:52] LABS: BASO# 0.05 X1000 (0.0-0.2); BASO% 0.5 % (0.0-0.8); HEMOGLOBIN 10.9 g/dL (14.0-18.0); LYMPH# 1.29 X1000 (1.2-3.4); LYMPH% 12.8 % (20.5-51.1); MCH 25.5 PG (27-31); MCHC 30.3 g/dL (33-37); MCV 84.3 FL (81-99); MONO# 1.05 X1000 (0.11-0.59); MONO% 10.4 % (1.7-9.3); MPV 10.2 FL (7.4-10.4); PLT 256 X1000 (130-400); RBC 4.27 XMIL (4.7-6.1); RDW 18.7 % (11.5-14.5); WBC 10.07 X1000 (4.8-10.8)
[2018-10-25 06:12] LABS: ALB/GLOB RATIO 0.9; ALBUMIN 3.4 g/dL (3.5-5.0); CALCIUM 9.1 mg/dL (8.8-10.2); CREATININE 1.2 mg/dL (0.7-1.2); MAGNESIUM 1.9 mg/dL (1.5-2.7); POTASSIUM 3.6 mmol/L (3.5-5.1); TOTAL BILIRUBIN 0.65 mg/dL (0.20-1.00); TOTAL PROTEIN 7.1 g/dL (6.3-8.3)
[2018-10-25] MEDS: HUMULIN R SUBQ SCH ×4 (06:35→21:15)
[2018-10-25 06:48] LABS: EOS 2 % (1-10); LYMPHS 18 % (21-51); MONO 6 % (1-9); SEGS 72 % (42-75)
--- NOTE | 2018-10-25 07:32 | Diag Imaging Result Doc PS360 ---
EXAM: CHEST-PORTABLE INDICATION: sob TECHNIQUE: One view COMPARISON: 11/03/2018 FINDINGS: There is a better inspiration as compared to the previous study. Extensive diffuse bilateral infiltrates that are predominantly interstitial have not changed significantly. No new consolidation is identified. Cardiac silhouette is stable. IMPRESSION: Better inspiration but stable chest, otherwise. Electronically signed by Jarod Hodges 10/25/2018 7:30 AM
--- NOTE | 2018-10-25 07:53 | EKG Report ---
Test Performed on : 10/25/2018 07:00:11 AM Test Reason : chf Blood Pressure : / mmHG Vent. Rate : 072 BPM Atrial Rate : 072 BPM P-R Int : 184 ms QRS Dur : 148 ms QT Int : 432 ms P-R-T Axes : 000 101 -36 degrees QTc Int : 473 ms Normal sinus rhythm. Right bundle branch block Abnormal ECG When compared with ECG of 24-OCT-2018 10:39, (Unconfirmed) No significant change was found Confirmed by Marleny GONZALES, Darrius Giraldo ([id number]) on 10/25/2018 9:07:35 AM
[2018-10-25] MEDS ORDERED: ASPIRIN EC PO SCH (09:00)
[2018-10-25] MEDS ORDERED: ATORVASTATIN CALCIUM 80 MG PO SCH (09:00)
[2018-10-25] MEDS: PULMICORT INH SCH ×2 (09:34→22:38)
[2018-10-25] MEDS: TOPROL XL PO SCH (09:47)
[2018-10-25] MEDS: NEURONTIN PO SCH ×3 (09:47→16:43)
[2018-10-25] MEDS: ASPIRIN PO SCH (09:47)
[2018-10-25] MEDS: KLOR-CON PO SCH ×2 (09:47→15:07)
[2018-10-25] MEDS: ELIQUIS PO SCH ×2 (09:47→21:13)
[2018-10-25] MEDS: CENTRUM SILVER PO SCH (09:47)
[2018-10-25] MEDS: HUMULIN 70/30 SUBQ SCH ×2 (09:56→21:15)
--- NOTE | 2018-10-25 10:50 | PROGRESS NOTE ---
DATE: 10/25/2018 INTERVAL HISTORY: No acute events overnight. SUBJECTIVE: He is feeling significantly better. He says his shortness of breath has improved, though, he is needing a good amount of oxygen. He tells me that he has history of COPD as well as pulmonary fibrosis. He does not know a lot about his other medical history. He does not know if he has heart failure or not. Records from his electrical maintenance engineer's office have been requested. We discussed with him about exam findings. We also discuss with him about increasing Lasix dose, and I answered all of his questions. He denies any chest pain. His shortness of breath is baseline. VITALS: Temperature 98.3, pulse 75, respiratory rate 20, blood pressure 128/68, he is saturating 93% on nonrebreather mask. PHYSICAL EXAMINATION: Oral cavity is moist. Lungs: He has adequate air entry bilateral lung bae. He has inspiratory crackle bilateral lung bae. No wheeze or rhonchi. Cardiovascular: S1, S2 normal. He has audible S3 gallop as well. No rub. Abdomen: Distended. He has ascites with shifting dullness and active bowel sounds. Extremities: Mild bilateral lower extremity edema extending up to mid hopkins level. Neurologic: He is alert and oriented x3. Input and output suggests negative 1.8 L. LABORATORY: Suggestive of normocytic anemia, normal platelet count. Normal kidney function except slight elevation of creatinine. MICROBIOLOGY: Blood cultures in Lab. IMAGING: Chest x-ray suggests extensive diffuse bilateral infiltrates predominantly interstitial. ASSESSMENT AND PLAN: 1. [id number] hypoxic respiratory failure due to acute pulmonary edema due to acute diastolic congestive heart failure exacerbation on top of baseline history of chronic obstructive pulmonary disease and pulmonary fibrosis. Increase current Lasix dose and continue oxygenation to maintain saturation between 88-92%. Aviation Boatswain'S Mate's record from outside hospital have been requested. He is no in respiratory distress at the moment, and subjectively he is feeling better. 2. History of coronary artery disease requiring stent in right coronary artery in 2017 and diastolic congestive heart failure. Continue his home atorvastatin, aspirin, metoprolol. He is not listed to be taking ELLE inhibitors. 3. History of paroxysmal atrial fibrillation. Currently, he is normal sinus rhythm. Continue home beta-henrique and Eliquis. He does have a history of pulmonary hemorrhage too. 4. History of chronic obstructive pulmonary disease, pulmonary fibrosis, and chronic hypoxic respiratory failure. Continue albuterol, ipratropium nebulization. 5. Others. Continue home insulin for insulin-dependent diabetes mellitus, zolpidem for insomnia, gabapentin for peripheral neuropathy, venlafaxine for anxiety. DISPOSITION: Continue to monitor patient in PBC unit. Plan of care discussed with him. All of his questions have been answered. cc: Guillermo Kingston MD
[2018-10-25] MEDS: EFFEXOR XR PO SCH (12:31)
[2018-10-25] MEDS: AMBIEN PO SCH (21:13)
[2018-10-25] MEDS: LIPITOR PO SCH (21:13)
[2018-10-25] MEDS: UNASYN 1.5 GM/NS 1.5 GM/50 ML IVPB IV SCH (21:16)
[2018-10-25] MEDS: MELATONIN PO SCH (21:40)
[2018-10-26] MEDS: UNASYN 1.5 GM/NS 1.5 GM/50 ML IVPB IV SCH (02:19)
[2018-10-26] MEDS: LASIX IV SCH ×3 (02:19→14:56)
[2018-10-26] MEDS: DUONEB (A & A) INH SCH ×4 (03:25→21:35)
[2018-10-26 06:11] LABS: CALCIUM 9.1 mg/dL (8.8-10.2); CREATININE 1.4 mg/dL (0.7-1.2); POTASSIUM 3.9 mmol/L (3.5-5.1)
[2018-10-26] MEDS: HUMULIN R SUBQ SCH ×4 (06:18→22:00)
[2018-10-26] MEDS: PULMICORT INH SCH (07:48)
--- NOTE | 2018-10-26 08:46 | ECHO REPORT ---
ORDER DATE: 10/24/2018 INDICATION: Shortness of breath, CHF, hypertension, atrial fibrillation. FINDINGS: 1. The right atrium appears normal in size. 2. There is mild to moderate tricuspid regurgitation. The RV systolic pressure is 55 suggesting pulmonary hypertension. 3. The right ventricle does appear to be enlarged. In addition, the RV systolic function appears reduced in the [id number]-iu-dioanrms range. 4. No significant pulmonic insufficiency. 5. Mild left atrial enlargement with a volume index of 29. 6. No mitral prolapse. Trace mitral regurgitation. No evidence of mitral stenosis. 7. Normal LV size, end-diastolic dimension of 4.5. Normal wall thicknesses with a posterior and interventricular septal wall thickness is 0.6 and 0.9 cm respectively. Normal left ventricular systolic function. The estimated EF is to 60% percent with normal wall motion. 8. The aortic valve opens well. It is trileaflet. No evidence of stenosis or insufficiency. 9. The aorta appears somewhat dilated with a dimension of 4.2 cm at the root. 10. No pericardial effusion seen. cc: MD Rosalina Dalton CRNP
[2018-10-26] MEDS: EFFEXOR XR PO SCH (09:26)
[2018-10-26] MEDS: ASPIRIN PO SCH (09:26)
[2018-10-26] MEDS: ELIQUIS PO SCH ×2 (09:26→22:00)
[2018-10-26] MEDS: CENTRUM SILVER PO SCH (09:26)
[2018-10-26] MEDS: NEURONTIN PO SCH ×3 (09:27→16:33)
[2018-10-26] MEDS: HUMULIN 70/30 SUBQ SCH ×2 (09:27→22:00)
[2018-10-26] MEDS: TOPROL XL PO SCH (09:28)
[2018-10-26] MEDS ORDERED: INSULIN PEN NEEDLES ONE (09:29)
[2018-10-26] MEDS: MIRALAX PO SCH ×2 (18:46→22:01)
--- NOTE | 2018-10-26 19:24 | PROGRESS NOTE ---
DATE: 10/26/2018 INTERVAL HISTORY: No acute events overnight. The patient continues to require high dose of oxygen, though he is not feeling too much more short of breath than baseline. We had a discussion about his condition. I am also awaiting has records from his lung doctor's office. The patient's is at bedside and they had requested hospice and palliative care services while at the bedside at the moment. The patient says she is occasionally coughing with expectoration. VITAL SIGNS: Temperature 98.5 degrees, pulse 91, respiratory rate 20, blood pressure 130/70. She is saturating 94% to 96% on 50% Venturi mask. PHYSICAL EXAMINATION: General: Not in acute distress. HEENT: Oral cavity is moist. Lungs: Air entry bilaterally equal, no wheeze or rhonchi. Inspiratory crackles bilateral infrascapular region. Cardiovascular: S1, S2 normal. S3 gallop is heard. No rub or gallop. Abdomen: Distended, obese. He has shifting dullness. Extremities: Mild bilateral lower extremity edema extending up to midshin level. Neurologic: He is alert and oriented x3. INPUT AND OUTPUT: Suggests -2.3 L yesterday. LABORATORY DATA: No CBC today. BMP suggestive of elevation in BUN and creatinine. Microbiology: Blood culture was growing coagulase-negative Staphylococcus. IMAGING: No new imaging data. He did have pulmonary arteriogram in 2019 which was unremarkable. I will follow up with CT scan of his lung tomorrow morning. ASSESSMENT AND PLAN: 1. Acute on chronic hypoxic respiratory failure due to acute pulmonary edema due to acute diastolic congestive heart failure exacerbation on top of baseline history of chronic obstructive pulmonary disease and pulmonary fibrosis. Continue oxygenation to maintain saturation between 88 to 92 percent. Mutuel Cashier's outpatient records are awaited. I will decrease his Lasix dose considering his worsening kidney function. 2. History of coronary artery disease requiring stent in the right coronary artery in 2017, diastolic congestive heart failure. Continue home atorvastatin, aspirin, metoprolol. 3. History of paroxysmal atrial fibrillation, currently in normal sinus rhythm. Continue home beta henrique and Eliquis. Previously, he did have history of pulmonary hemorrhage. 4. History of chronic obstructive pulmonary disease, pulmonary fibrosis, chronic hypoxic respiratory failure on home 4 to 5 L nasal cannula oxygen. Continue albuterol ipratropium nebulization. I will also add Symbicort. 5. Others: Continue insulin for insulin-dependent diabetes mellitus, zolpidem for insomnia, gabapentin for peripheral neuropathy, and venlafaxine for anxiety. DISPOSITION: I will continue to monitor patient in the PBC unit. Apparently, patient had expressed wishes to be consulted by the hospice team. Palliative Care Team on board. cc: Guillermo Kingston MD
--- NOTE | 2018-10-26 21:17 | Diag Imaging Result Doc PS360 ---
EXAM: CT THORAX W/O CONTRAST 10/26/2018 HISTORY: Profound hypoxia TECHNIQUE: This exam was performed using automated exposure control, adjustment of mA or kV according to patient size, and/or use of iterative reconstruction technique. COMMENT: There is mediastinal adenopathy which does not appear to have changed significantly since 04/06/2018. There is a large precarinal node which exceeds, previously this measured over 4 cm. There is extensive coronary calcification. There are granulomata in the liver and spleen. There are small stones layering dependently in the gallbladder. Compared to the previous examination the pleural effusions which were present previously have resolved. The regional skeleton appears stable. There is increased interstitial opacity throughout both lungs with a mild degree of honeycombing in the right lower lobe. There is a nodule in the inferior lingula which was not present previously and measures almost 17 mm in diameter. The interstitial opacity is largely improved since the previous examination. There are emphysematous changes in the upper lung zones. There is some apparent traction bronchiectasis in the lower lobes particularly the right lower lobe. The atelectasis or pneumonia which was present previously in the right lower lobe has apparently resolved. IMPRESSION: COPD. Interstitial pulmonary fibrosis, probably idiopathic. The pleural effusions and pulmonary edema which were previously present have apparently resolved or at least considerably improved. New pulmonary nodule in the lingula. Electronically signed by Cezar Stanley 10/26/2018 9:15 PM
[2018-10-26] MEDS: SYMBICORT 80/4.5 MICROGM INHALER INH SCH (21:36)
[2018-10-26] MEDS: MELATONIN PO SCH (21:59)
[2018-10-26] MEDS: AMBIEN PO SCH (22:00)
[2018-10-26] MEDS: LIPITOR PO SCH (22:00)
[2018-10-27] MEDS: DUONEB (A & A) INH SCH ×3 (03:29→16:26)
[2018-10-27 04:38] LABS: ALLEN TEST YES; BE 6.8 mmoll (-3.0-3.0); BLOOD TYPE ARTERIAL; HCO3-(ACT) 30.1 mmoll (20.0-26.0); METHB 1.1 % (0.0-1.5); O2(CT) 15.4 mL/dL (15.0-23.0); O2HB 93.1 % (95.0-99.0); PCO2(98.6) 47 mmHg (35-45); PO2(98.6) 77 mmHg (60-100); SAMPLE BLOOD; SAO2 96.7 % (95.0-100.0); THB 11.7 g/dL (11.5-17.4); pH(98.6) 7.44 (7.35-7.45)
[2018-10-27 04:40] LABS: MODALITY NRB
[2018-10-27] MEDS: HUMULIN R SUBQ SCH ×4 (06:16→22:24)
[2018-10-27 06:34] LABS: CREATININE 1.2 mg/dL (0.7-1.2); MAGNESIUM 1.9 mg/dL (1.5-2.7); POTASSIUM 3.4 mmol/L (3.5-5.1)
[2018-10-27] MEDS: CENTRUM SILVER PO SCH (09:23)
[2018-10-27] MEDS: ELIQUIS PO SCH ×2 (09:23→21:47)
[2018-10-27] MEDS: MIRALAX PO SCH ×2 (09:23→22:25)
[2018-10-27] MEDS: ASPIRIN PO SCH (09:23)
[2018-10-27] MEDS: TOPROL XL PO SCH (09:23)
[2018-10-27] MEDS: EFFEXOR XR PO SCH (09:23)
[2018-10-27] MEDS: NEURONTIN PO SCH ×3 (09:23→18:07)
[2018-10-27] MEDS: HUMULIN 70/30 SUBQ SCH ×2 (09:26→22:23)
[2018-10-27] MEDS: SYMBICORT 80/4.5 MICROGM INHALER INH SCH ×2 (11:06→19:52)
[2018-10-27] MEDS ORDERED: MORPHINE IV PRN (12:07)
[2018-10-27] MEDS: SOLU-MEDROL IV SCH ×2 (13:05→17:48)
[2018-10-27] MEDS ORDERED: LACTULOSE PO ONE (14:40)
[2018-10-27] MEDS ORDERED: DULCOLAX PR ONE (14:40)
[2018-10-27] MEDS: LIPITOR PO SCH (21:48)
[2018-10-27] MEDS: AMBIEN PO SCH (21:48)
[2018-10-27] MEDS: MELATONIN PO SCH (21:49)
[2018-10-27 21:56] VITALS: BP 133/68
[2018-10-27] MEDS ORDERED: INSULIN PEN NEEDLES ONE (22:24)
--- NOTE | 2018-10-28 05:01 | CONSULTATION ---
DATE OF CONSULTATION: 10/27/2018 REQUESTING PROVIDER: Norris Kingston MD. REASON FOR CONSULTATION: Hypoxia, idiopathic pulmonary fibrosis. HISTORY OF PRESENT ILLNESS: This is a 72-year-old male with a medical history of COPD, chronic hypoxic respiratory failure, congestive heart failure, coronary artery disease, alveolar hemorrhage, hypertension, atrial fibrillation, diabetes, dyslipidemia, and diabetic neuropathy. He presented to the ER on 10/24/2018 with worsening shortness of breath on exertion. Initial workup in the ER revealed acute on chronic hypoxic respiratory failure secondary to acute diastolic congestive heart failure exacerbation. He has been admitted to the [facility] for further evaluation and management. The patient currently is lying in bed with no acute distress noted. He is on Venturi mask with FiO2 of 50%. The patient's is at the bedside. He reported his shortness of breath has been slowly improved. He does have some pedal edema recently, and his dyspnea on exertion got so bad before admission that he had to increase his oxygen from 4 to 5 L up to to 8 L. He reports some productive cough, which is improving. He has no chest pain, palpitations, wheezing, fever, chills, nausea, vomiting, bowel habit change, or urination discomfort. He said he is ready to go home with hospice at this time, and he has no interest for any aggressive treatment or procedure at this time. PAST MEDICAL HISTORY/PAST SURGICAL HISTORY: 1. COPD apparently with advanced pulmonary fibrosis. The patient has seen a food service manager in [place], [place]. He is on home oxygen at 8 L prior to admission. He is on prednisone daily. 2. Congestive heart failure. 3. Coronary artery disease, significant, status post drug-eluting stent to the right coronary artery in September of 2016 at [facility]. 4. Alveolar hemorrhage in March of 2018. 5. Hypertension. 6. Atrial fibrillation status post transesophageal echocardiogram with cardioversion on 02/23/2018. 7. Diabetes mellitus type 2, insulin dependent. 8. Dyslipidemia. 9. Diabetic neuropathy. 10. Bilateral knee arthroplasty. 11. Appendectomy. SOCIAL HISTORY: The patient is retired. He is and lives at home. He used to smoke 3 packs per day since age 6 or 7, and quit over 30 years ago. He has no history of alcohol or illicit drug use. FAMILY HISTORY: Positive for diabetes. ALLERGIES: No known drug allergies. REVIEW OF SYSTEMS: A 10-point review of systems was conducted and the pertinent is listed within the HPI, otherwise noncontributory. PHYSICAL EXAMINATION: Vital Signs: Temperature 97.6 degrees, blood pressure 150/76, pulse 104, respiratory rate 20, oxygen saturation 93% on Venturi mask with FiO2 of 50%. General: Currently on a Venturi mask with no acute distress noted. He is lying on the bed with his at the bedside. HEENT: Atraumatic. Trachea midline. Mucosa pink and moist. Respiratory: Even and unlabored with symmetrical excursion. Auscultation revealed early inspiratory crackles bibasilarly with right side worse than the left side. Cardiovascular: Regular rate and rhythm, with some abnormal heart sounds noted. Gastrointestinal: Soft, distended, nontender. Normoactive bowel sounds in all 4 quadrants. Extremities: Bilateral lower extremity trace edema. No cyanosis. No clubbing. Dorsalis pedis diminished bibasilarly. Neurologic: Alert and oriented x3. Speech fluent. Follows commands. LABORATORY DATA: Sodium 141, potassium 3.4, chloride 99, carbon dioxide 29, BUN 28, creatinine 1.2, glucose 88. ABG, pH is 7.44, pCO2 of 47, PO2 is 77, HC03 is 30.1, base excess is 6.8, and oxyhemoglobin is 93.1. IMAGING DATA: CT of the thorax without contrast on 10/26/2018 showed COPD, interstitial pulmonary fibrosis, resolved pleural effusion, and pulmonary edema. Some apparent traction bronchiectasis in the lower lobe, particularly in the right lower lobe, stable mediastinal adenopathy, and new pulmonary nodule in the inferior lingula measuring almost 17 mm in diameter. ASSESSMENT: This is a 72-year-old male with a medical history of COPD, pulmonary fibrosis, chronic hypoxic and hypoxemic respiratory failure, congestive heart failure, coronary artery disease, alveolar hemorrhage, hypertension, atrial fibrillation, diabetes mellitus type 2 insulin dependent, dyslipidemia, diabetic neuropathy. He has been admitted to the [facility] since 10/24/2018 with acute on chronic hypoxic respiratory failure secondary to acute diastolic congestive heart exacerbation. 1. Acute on chronic hypoxic respiratory failure. 2. Acute diastolic congestive heart failure exacerbation, improving. 3. COPD with advanced pulmonary fibrosis likely idiopathic. 4. New pulmonary nodule in the inferior lingula measuring almost 17 mm in diameter. PLAN: 1. Continue supplemental oxygen. 2. Continue on steroids and bronchodilators. The patient apparently on chronic prednisone 40 mg daily at home. 3. The patient would like to go home with home hospice care. He is a DNR 1. 4. Further recommendations pending hospital course. Thank you for the courtesy of this consult. Dictated by DIVINA Madrigal for Kristy Cross MD cc: DIVINA Madrigal MD [facility]
[2018-10-28] MEDS ORDERED: PREDNISONE PO SCH (09:00)
--- NOTE | 2018-10-28 13:31 | DISCHARGE SUMMARY ---
ADMISSION DATE: 10/24/2018 DISCHARGE DATE: 10/27/2018 DISCHARGE DIAGNOSES: 1. Idiopathic pulmonary fibrosis with progression. 2. Acute on chronic hypoxic respiratory failure. 3. Acute pulmonary edema due to acute diastolic congestive heart failure exacerbation. OTHER DIAGNOSES: 1. History of coronary artery disease requiring stent in RCA in 2017. 2. History of chronic diastolic congestive heart failure. 3. History of paroxysmal atrial fibrillation. 4. History of chronic obstructive pulmonary disease and pulmonary fibrosis. 5. Chronic hypoxic respiratory failure on home 4 L of nasal cannula oxygen. 6. History of insulin-dependent diabetes mellitus type 2. 7. Prior history of pulmonary fibrosis on Eliquis. DISCHARGE MEDICATIONS: 1. Zolpidem 1 tab at 10 mg at nighttime. 2. Humulin 70/30 40 units at nighttime. 3. Melatonin 2 tablets 1 mg at nighttime. 4. Atorvastatin 80 mg daily. 5. Apixaban 5 mg b.i.d. 6. Gabapentin 300 mg t.i.d. 7. Humulin 70/30 60 units in the morning time. 8. Furosemide 40 mg b.i.d. 9. Multivitamin 1 tablet daily. 10. Venlafaxine 150 mg daily. 11. Fluticasone salmeterol 250/50 inhaled b.i.d. 12. Aspirin 81 mg daily. 13. Albuterol ipratropium 0.5 mg every 6 hours for shortness of breath. 14. Metoprolol 100 mg b.i.d. 15. MiraLAX 17 g b.i.d. 16. Prednisone 40 mg daily. CONSULTATIONS DURING HOSPITAL ADMISSION: 1. Pulmonology, Dr. Cross. 2. Palliative Care and hospice services. VITALS: At the time of discharge, temperature 97.6 degrees, pulse 104, respiratory 20, blood pressure 115/76 and saturating 92% on 50% Ventimask. PHYSICAL EXAMINATION: In mild distress because of shortness of breath. Oral cavity is moist. Lungs: Air entry bilaterally equal. No wheeze or rhonchi. Inspiratory crackles bilateral infrascapular region velcro like. Heart: S1, S2 normal. Regular. No murmur, rub, or gallop. Abdomen: Soft, nontender. Extremities: Mild bilateral lower extremity edema extending up to midshin level. He is alert and oriented x3. His is at bedside. SIGNIFICANT LABORATORY: During hospital admission and discharge, WBC 12468, hemoglobin 10.9, and platelet count 256,000. ABG suggestive of PO2 of 77 on 100% non-rebreather. BUN is 28, creatinine 1.2. SIGNIFICANT MICRO DURING HOSPITAL ADMISSION: One of the 2 blood cultures was growing coagulase- negative Staphylococcus which was likely contaminant. SIGNIFICANT IMAGING DURING HOSPITAL ADMISSION: Chest CT on 10/26 had interstitial pulmonary fibrosis, probably idiopathic pleural effusions and pulmonary edema which were previously present and have apparently resolved or at least considerably improved. New pulmonary nodule in the lingula about 17 mm. HOSPITAL COURSE SUMMARY: Mr. Forde is a 72 year old man with past medical history of COPD, pulmonary fibrosis, chronic hypoxic respiratory failure, and diastolic congestive heart failure, who came in on 10/24/2018 with chief complaints of shortness of breath on exertion. At baseline, he uses 4 to 5 L of oxygen. However, since last 4 to 5 days, he started experiencing shortness of breath while coming out of bed and going to the bathroom to an extent that his shortness of breath progressively worsened so he decided to come to the hospital. In the emergency room, he was found to be hypoxic requiring 50% Ventimask and had acute pulmonary edema on chest x-ray so physician hospitalist team was consulted for further management. He was admitted for intravenous diuretics following which his shortness of breath improved. However, he still had required 50% Ventimask. CT scan of the chest had diffuse pulmonary fibrosis. I consulted pulmonology Dr. Cross inside the hospital, and I also talked with the patient's own outpatient correction officer [employer]. Apparently, patient had developed advanced pulmonary fibrosis, and his outpatient correction officer [employer]atory had already recommended him hospice care 4 weeks prior to current admission, the nature of his disease and his pulmonary fibrosis, and long-term prognosis were explained to the patient and his . They had decided to pursue hospice care. The patient will be discharged on steroids and Lasix. TIME SPENT: More than 30 minutes spent discharging this patient on hospice service. cc: Guillermo Kingston MD MTDD
== END 2018-10-27 22:27 | disposition hospice, home (50) | DRG 291 ==
LOC: SUPCPDRO → ED 10:27 → EDIPHOLD 15:39 → 2N 16:53
PROVIDERS: ATTEND Internal Medicine